=== PATIENT | male | born 1950 | race Caucasian/White ===

== ENCOUNTER 2020-04-12 23:47 | Inpatient (IN) | payer MEDICARE, OTHER ==
[2020-04-13 00:43] LABS: #Eosinphils 0.2 thou/uL (0.0-0.7); #Lymphocytes 1.3 thou/uL (1.20-3.40); #Monocytes 0.7 thou/uL (0.11-0.59); #Neutrophils 5.2 thou/uL (1.40-6.50); %Basophils 0.2 % (0.0-1.0); %Eosinophils 3.2 % (0.0-10.0); %Lymphocytes 17.7 % (21.0-51.0); %Monocytes 9.3 % (0.0-10.0); %Neutrophils 69.6 % (42.0-75.0); Hemoglobin 14.1 g/dL (14.0-18.0); Mean Corpuscular HGB CONC 33.7 g/dL (32.0-36.0); Mean Corpuscular Hemoglobin 30.1 pg (27.0-31.0); Mean Corpuscular Volume 89.4 fL (78.0-98.0); Mean Platelet Volume 8.5 fL (7.4-10.4); Platelet Count 143 thou/uL (130-400); RBC Distribution Width 12.5 % (11.5-14.5); Red Blood Cell (RBC) Count 4.67 mill/uL (4.70-6.10); White Blood Cell (WBC) Count 7.4 thou/uL (4.8-10.8)
[2020-04-13 00:59] LABS: ALT (SGPT) 24 U/L (8-55); AST (SGOT) 17 U/L (5-34); Albumin 4.4 g/dL (3.4-4.8); Alkaline Phosphatase 56 U/L (40-110); Anion Gap 15 mmol/L (10-20); BUN (Urea Nitrogen) 19 mg/dL (8.4-25.7); Bilirubin, Total 0.5 mg/dL (0.2-1.2); Calc. Creatinine Clearance 0 mL/min (70-130); Calcium 9.2 mg/dL (7.8-10.44); Carbon Dioxide 27 mmol/L (23-31); Chloride 99 mmol/L (98-107); Globulin 3.4 g/dL (2.4-3.5); Glucose 337 mg/dL (80-115); Potassium 4.3 mmol/L (3.5-5.1); Protein, Total 7.8 g/dL (5.8-8.1); Sodium 137 mmol/L (136-145)
[2020-04-13] MEDS ORDERED: Insulin Regular 300 UNITS/3 ML VIAL ONE (01:09)
[2020-04-13 01:20] LABS: CKMB 3.2 ng/mL (0-6.6)
[2020-04-13 02:44] VITALS: BMI 28.6
[2020-04-13] MEDS ORDERED: Dextrose 5% in Water 1,000 ML IV PRN (03:20)
[2020-04-13] MEDS ORDERED: HumaLOG 300 UNITS/3 ML VIAL SC PRN ×3 (03:20→12:44)
[2020-04-13] MEDS ORDERED: Dextrose 50% Abboject 50 ML SYRINGE SLOW IVP PRN (03:20)
--- NOTE | 2020-04-13 03:43 | PDOC.HHP ---
Hospitalist HPI - History of Present Illness History of Present Illness: ADMISSION DATE: 04/13/2020 TIME OF ASSESSMENT: PRIMARY CARE PHYSICIAN: Sonya CHIEF COMPLAINT: Chest pain HPI: Patient is a 70-year-old male past medical history significant for diabetes mellitus type 2, hypertension, hyperlipidemia. He presents to the ER today for intermittent chest pain that has been occurring for 4 months. He describes it as a sharp pain that starts in his upper abdomen and goes to the back and then will radiate down his left arm. He has been using nitro and Pepcid daily to help relieve his pain. Patient states he also uses marijuana at times to help relieve the pain. He states that he had a stress test over a year ago and at that time he was started on nitro, denies heart cath. He states that he was told the pain was "gas pain" but he was given nitro to take when it occurs. Today the patient took 3 sublingual nitro at home and the pain was relieved when EMS gave him IV fluids in route to the hospital. The pain is accompanied by nausea and shortness of breath, denies vomiting. Patient denies cough, fever, contact with sick persons, orthopnea. He states the reason he came in tonight after 4 months of the pain was that he was encouraged to by his friends. He is a poor historian and his information will change throughout the interview. ED COURSE: Vital Signs: Blood pressure 164/97, pulse 82, respiratory rate 16, temp 98.1 oral, 98% on room air Today in the ER they completed a chest x-ray, EKG, lab work. He was given 1 L of normal saline by EMS which helped decrease his chest pain in route. He was also given aspirin 324 mg by EMS. In the ER he was given regular insulin 8 units and was started on normal saline infusion. PAST MEDICAL HISTORY: Hypertension, diabetes mellitus type 2, hyperlipidemia, hypothyroidism PAST SURGICAL HISTORY: Right fourth digit SOCIAL HISTORY: Patient lives at home. He denies smoking or alcohol use. He does occasionally use marijuana to help relieve his pain. FAMILY HISTORY: Patient unable to remember ALLERGIES: No known drug allergies CURRENT MEDICATIONS: Lisinopril 20 mg once a day Amlodipine 5 mg 2 times a day Metformin 1000 mg 2 times a day Famotidine 20 mg once a day Gabapentin 300 mg 3 times a day Metoprolol tartrate 25 mg 2 times a day Levothyroxine 175 mcg once a day Hospitalist ROS - Review of Systems Respiratory: reports: SOB with excertion Cardiovascular: reports: chest pain Gastrointestinal: reports: nausea All other systems reviewed; all pertinent +/- noted in HPI/Subj - Exam General Appearance: NAD, awake alert ENT: normocephalic atraumatic Neck: supple Heart: RRR, no murmur, no gallops, no rubs, normal peripheral pulses Respiratory: CTAB, no wheezes, no rales, no ronchi, normal chest expansion Gastrointestinal: soft, non-tender, non-distended, normal bowel sounds Extremities: no edema Skin: no rashes Neurological: no weakness, no focal deficits Musculoskeletal: normal tone, no muscle wasting Psychiatric: normal affect, normal behavior, A&O x 3 Hospitalist Results - Labs Result Diagrams: 04/13/20 04:16 04/13/20 00:33 Lab results: WBC 7.4 thou/uL (4.8-10.8) 04/13/20 00:33 Hgb 14.1 g/dL (14.0-18.0) 04/13/20 00:33 Hct 41.7 % (42.0-52.0) L 04/13/20 00:33 MCV 89.4 fL (78.0-98.0) 04/13/20 00:33 Plt Count 143 thou/uL (130-400) 04/13/20 00:33 Neutrophils % 69.6 % (42.0-75.0) 04/13/20 00:33 Sodium 137 mmol/L (136-145) 04/13/20 00:33 Potassium 4.3 mmol/L (3.5-5.1) 04/13/20 00:33 Chloride 99 mmol/L (98-107) 04/13/20 00:33 Carbon Dioxide 27 mmol/L (23-31) 04/13/20 00:33 BUN 19 mg/dL (8.4-25.7) 04/13/20 00:33 Creatinine 1.55 mg/dL (0.7-1.3) H 04/13/20 00:33 Glucose 337 mg/dL (80-115) H 04/13/20 00:33 Calcium 9.2 mg/dL (7.8-10.44) 04/13/20 00:33 Total Bilirubin 0.5 mg/dL (0.2-1.2) 04/13/20 00:33 AST 17 U/L (5-34) 04/13/20 00:33 ALT 24 U/L (8-55) 04/13/20 00:33 Alkaline Phosphatase 56 U/L (40-110) 04/13/20 00:33 CK-MB (CK-2) 3.2 ng/mL (0-6.6) 04/13/20 00:33 Troponin I 0.066 ng/mL (< 0.028) H 04/13/20 00:33 Serum Total Protein 7.8 g/dL (5.8-8.1) 04/13/20 00:33 Albumin 4.4 g/dL (3.4-4.8) 04/13/20 00:33 - EKG Interpretation EKG: Sinus rhythm 83 bpm with no ectopic beats, inverted T waves II, III, aVf, V4, V5, V6 Hospitalist H&P A/P - Plan Plan: Chest pain Continue to trend troponins, initial was slightly elevated at 0.066unsure of baseline Plan for stress test in a.m. unless troponins elevate or has EKG changes Monitor on telemetry Continue aspirin Acute kidney injury versus chronic kidney disease Continue IV fluids Recheck labs in a.m. to see if any improvementunsure of patient's baseline Diabetes mellitus type 2 Hyperglycemic upon arrival to ER, currently BS is 186 Accu-Cheks AC at bedtime Mild sliding scale insulin Hold Metformin at this time Hypertension Monitor vital signs every 4 hour Restart home medications once reconciled Hypothyroid Check TSH Restart home medication Hyperlipidemia FLP in a.m. Restart home medications VTE prophylaxis in place with SCDs CODE STATUS: Full Surrogate decision-maker is the patient's sister
[2020-04-13] MEDS ORDERED: Aspirin 325 MG TAB PO SCH (03:45)
[2020-04-13] MEDS ORDERED: Sodium Chloride 0.9% 1,000 ML IV SCH (04:00)
[2020-04-13 04:46] LABS: #Eosinphils 0.3 thou/uL (0.0-0.7); #Lymphocytes 1.8 thou/uL (1.20-3.40); #Monocytes 0.7 thou/uL (0.11-0.59); #Neutrophils 4.3 thou/uL (1.40-6.50); %Basophils 0.4 % (0.0-1.0); %Eosinophils 4.5 % (0.0-10.0); %Lymphocytes 24.6 % (21.0-51.0); %Monocytes 10.4 % (0.0-10.0); %Neutrophils 60.1 % (42.0-75.0); Hemoglobin 13.5 g/dL (14.0-18.0); Mean Corpuscular HGB CONC 33.8 g/dL (32.0-36.0); Mean Corpuscular Hemoglobin 30.1 pg (27.0-31.0); Mean Corpuscular Volume 88.9 fL (78.0-98.0); Mean Platelet Volume 8.3 fL (7.4-10.4); Platelet Count 138 thou/uL (130-400); RBC Distribution Width 12.5 % (11.5-14.5); Red Blood Cell (RBC) Count 4.48 mill/uL (4.70-6.10); White Blood Cell (WBC) Count 7.1 thou/uL (4.8-10.8)
[2020-04-13 05:03] LABS: Anion Gap 13 mmol/L (10-20); BUN (Urea Nitrogen) 18 mg/dL (8.4-25.7); Calc. Creatinine Clearance 66 mL/min (70-130); Calcium 9.1 mg/dL (7.8-10.44); Carbon Dioxide 28 mmol/L (23-31); Cardiac Risk 6.6 (Less than 4.5); Chloride 103 mmol/L (98-107); Cholesterol 198 mg/dl (< 200 Desired); Glucose 190 mg/dL (80-115); HDL Cholesterol 30 mg/dL (>60 Neg Risk); LDL Cholesterol, Calculated 88 mg/dL; Magnesium 1.8 mg/dL (1.6-2.6); Potassium 4.4 mmol/L (3.5-5.1); Sodium 140 mmol/L (136-145); Triglycerides 399 mg/dL (Less than 150)
[2020-04-13 07:30] LABS: Troponin I 0.403 ng/mL (< 0.028)
[2020-04-13] MEDS ORDERED: Nitroglycerin 0.4 MG TAB (25 Tab Bottle) SL PRN (07:55)
[2020-04-13] MEDS ORDERED: Magnesium Sulfate 2 GM in Sodium Chloride 0.9% 100 ML IVPB SCH (08:00)
[2020-04-13] MEDS ORDERED: Magnesium 2 GM/50 ML 2 GM in Premix Bag 1 BAG IVPB SCH (08:00)
[2020-04-13] MEDS ORDERED: Enoxaparin Sodium 80 MG/0.8 ML SYRINGE SC SCH (08:00)
[2020-04-13 08:22] LABS: SARS-CoV-2 MS2 Positive; SARS-CoV-2 N Gene Negative; SARS-CoV-2 S Gene Negative; SARS-CoV-2 by NAA Not Detected (NotDetected); SARS-CoV-2 orf1ab Negative
--- NOTE | 2020-04-13 08:32 | RAD ---
EXAM: Chest PA and lateral: HISTORY: Chest pain COMPARISON: None FINDINGS: Heart size:Within normal limits. Lungs:Clear of acute process. No confluent pneumonia, overt edema, pleural effusion, or other acute process. IMPRESSION: No significant acute intrathoracic disease.
[2020-04-13] MEDS ORDERED: Lisinopril 2.5 MG TAB PO SCH (09:00)
[2020-04-13] MEDS ORDERED: Metoprolol Tartrate 25 MG TAB ONE (09:36)
[2020-04-13] MEDS ORDERED: Enoxaparin Sodium 80 MG/0.8 ML SYRINGE ONE (09:36)
[2020-04-13] MEDS ORDERED: Magnesium 2 GM/50 ML BAG (IN WATER) ONE (09:36)
[2020-04-13] MEDS ORDERED: Aspirin 325 MG TAB ONE (09:36)
[2020-04-13] MEDS: Metoprolol Tartrate 25 MG TAB PO SCH ×2 (09:41→20:45)
[2020-04-13] MEDS: Enoxaparin Sodium 80 MG/0.8 ML SYRINGE SC SCH ×3 (09:41→20:52)
[2020-04-13] MEDS: Aspirin 325 mg Enteric Coated Tablet PO SCH (09:41)
[2020-04-13 10:17] LABS: CKMB 4.1 ng/mL (0-6.6)
[2020-04-13] MEDS ORDERED: diphenhydrAMINE 50 MG CAP PO PRN (12:40)
[2020-04-13] MEDS ORDERED: Nitroglycerin 2% Ointment 1 INCH/1 GM Packet TOP PRN (12:43)
[2020-04-13] MEDS ORDERED: Lisinopril 20 MG TAB PO SCH (12:45)
[2020-04-13] MEDS ORDERED: Famotidine 20 MG TAB PO SCH (13:00)
[2020-04-13] MEDS: Gabapentin 300 MG CAP PO SCH ×2 (13:37→20:45)
[2020-04-13] MEDS ORDERED: Communication Order-Pharmacy FS SCH (13:45)
--- NOTE | 2020-04-13 14:20 | CON ---
DATE OF CONSULTATION: 04/13/2020 REASON FOR CONSULTATION: Ere-UY-ehnrnzsdr myocardial infarction. HISTORY OF PRESENT ILLNESS: Mr. Olmstead is a 70-year-old gentleman. He has a long history of diabetes for at least 10 years. He said at least for several weeks, he noticed that if he exerts himself, he will get pressure in his chest. He said it is worse when he tries to eat something and then try to exert himself. He said on a couple of occasions, "I didn't know if I was going to make it back home." He has been taking increasing amounts of nitroglycerin. The patient finally came to the hospital, where he has been admitted after found to have slight increased troponin levels. PAST MEDICAL HISTORY: 1. Hypertension. 2. Diabetes for over 10 years, also on insulin. 3. Unknown cholesterol status. HOME MEDICATIONS: Included: 1. Metformin 1000 mg twice a day. 2. Insulin, he adjusts the dose based on his glucose. 3. Metoprolol tartrate 25 mg twice a day. 4. Lisinopril 20 mg a day. 5. Gabapentin. 6. Amlodipine 5 mg a day. 7. Pepcid if needed. 8. Levothyroxine. 9. Benadryl if needed for sleep. ALLERGIES: NONE KNOWN. SOCIAL HISTORY: No alcohol or tobacco abuse. He does occasionally use marijuana. REVIEW OF SYSTEMS: CONSTITUTIONAL: No significant weight gain or loss. VISION: No changes. HEARING: No changes. PULMONARY: No cough or wheezing. GASTROINTESTINAL: No nausea, vomiting, or diarrhea. SKIN: No rashes. NEUROLOGIC: No unilateral weakness or numbness. PSYCHIATRIC: No unusual depression or anxiety. FAMILY HISTORY: Negative for heart disease as far as he knows. PHYSICAL EXAMINATION: GENERAL: This is a pleasant 70-year-old man, in no distress. VITAL SIGNS: Blood pressure 172/97, pulse 68 and regular. LUNGS: Clear. CARDIAC: Normal S1, normal S2. There is no murmur, rub, or gallop. ABDOMEN: Soft and nontender. EXTREMITIES: Warm and dry. No clubbing or cyanosis. There is no edema. Peripheral pulses are palpable in the feet. LABORATORY DATA: Troponin 0.418. BNP 341.0. Chemistry; glucose 174, creatinine 1.34. Echocardiogram reveals ejection fraction 35% to 40%. Akinesis of the mid and distal anterior wall apex and distal inferior wall. EKG revealed sinus rhythm, some T-wave inversions in V3, V4, V5, and V6. T-waves were upright in V3 yesterday. ASSESSMENT: 1. Kiw-LZ-yrapuaxvg myocardial infarction, pain-free now. 2. Longstanding diabetes. 3. Longstanding hypertension. 4. Unknown cholesterol status. 5. Depressed left ventricular function, likely the left anterior descending artery distribution, likely with "wrap-around" anatomy would be likely. 6. Significant chance he may have multivessel coronary artery disease. PLAN: 1. Aspirin. 2. Enoxaparin. 3. Check lipids. 4. Beta blockers and LAISHA inhibitors. 5. Statins. 6. Proceed to cardiac catheterization tomorrow. Discussed risks of stroke, heart attack, iodine allergy, loss of blood supply to leg or kidney, stent thrombosis, stent restenosis all discussed. The patient understands and wishes to proceed. Job ID: [id number]
[2020-04-13] MEDS: Famotidine 20 MG TAB PO SCH (20:46)
[2020-04-13] MEDS ORDERED: Atorvastatin Calcium 40 MG TAB PO SCH (21:00)
[2020-04-13] MEDS ORDERED: Lisinopril 10 MG TAB PO SCH (21:00)
[2020-04-14] MEDS ORDERED: Sodium Chloride 0.9% 1,000 ML IV SCH (05:00)
[2020-04-14] MEDS: Aspirin 325 mg Enteric Coated Tablet PO SCH (05:17)
[2020-04-14] MEDS: Metoprolol Tartrate 25 MG TAB PO SCH (05:17)
[2020-04-14] MEDS: Famotidine 20 MG TAB PO SCH (05:17)
[2020-04-14] MEDS: Gabapentin 300 MG CAP PO SCH (05:17)
[2020-04-14] MEDS ORDERED: Levothyroxine 175 MCG TAB PO SCH (06:00)
[2020-04-14 08:37] LABS: #Basophils 0.1 thou/uL (0.0-0.2); #Eosinphils 0.4 thou/uL (0.0-0.7); #Monocytes 0.7 thou/uL (0.11-0.59); %Basophils 1.2 % (0.0-1.0); %Eosinophils 6.1 % (0.0-10.0); %Lymphocytes 27.4 % (21.0-51.0); %Monocytes 9.3 % (0.0-10.0); %Neutrophils 55.9 % (42.0-75.0); Hemoglobin 13.4 g/dL (14.0-18.0); Mean Corpuscular HGB CONC 33.1 g/dL (32.0-36.0); Mean Corpuscular Hemoglobin 29.6 pg (27.0-31.0); Mean Corpuscular Volume 89.4 fL (78.0-98.0); Mean Platelet Volume 8.3 fL (7.4-10.4); Platelet Count 132 thou/uL (130-400); RBC Distribution Width 12.4 % (11.5-14.5); Red Blood Cell (RBC) Count 4.54 mill/uL (4.70-6.10); White Blood Cell (WBC) Count 7.2 thou/uL (4.8-10.8)
[2020-04-14 08:57] LABS: Anion Gap 12 mmol/L (10-20); BUN (Urea Nitrogen) 23 mg/dL (8.4-25.7); Calc. Creatinine Clearance 58 mL/min (70-130); Calcium 8.8 mg/dL (7.8-10.44); Carbon Dioxide 30 mmol/L (23-31); Chloride 100 mmol/L (98-107); Glucose 194 mg/dL (80-115); Potassium 4.7 mmol/L (3.5-5.1); Sodium 137 mmol/L (136-145)
[2020-04-14] MEDS ORDERED: Lisinopril 20 MG TAB PO SCH (09:00)
[2020-04-14] MEDS ORDERED: Midazolam HCl 2 mg/2 ml Vial ONE (09:06)
[2020-04-14] MEDS ORDERED: Fentanyl 100 MCG/2 ML VIAL ONE (09:06)
[2020-04-14] MEDS ORDERED: diphenhydrAMINE 50 MG/ML VIAL ONE (09:23)
[2020-04-14] MEDS ORDERED: Heparin 10,000 UNITS/ 10 ML VIAL ONE (09:39)
[2020-04-14] MEDS ORDERED: Aminocaproic Acid 5 GM/20 ML VIAL ONE (10:02)
[2020-04-14] MEDS ORDERED: Magnesium Sulfate 1 GM/2 ML VIAL ONE (10:02)
[2020-04-14] MEDS ORDERED: Succinylcholine 200 MG/10 ml SYRINGE FS ONE (10:02)
[2020-04-14] MEDS ORDERED: PHENYLEPHRINE-NS 100 MCG/ML 10 ML SYRINGE ONE (10:02)
[2020-04-14] MEDS ORDERED: Sodium Bicarb 50 MEQ/50 ML Abboject 8.4% SYRINGE ONE (10:02)
[2020-04-14] MEDS ORDERED: Lidocaine 2% PF 100 mg/5 ml Syringe ONE (10:02)
[2020-04-14] MEDS ORDERED: Heparin 5,000 UNITS/ML VIAL ONE (10:02)
[2020-04-14] MEDS ORDERED: PROPOFOL 200 MG/20 ML VIAL ONE (10:02)
[2020-04-14] MEDS ORDERED: Heparin 30,000 units/30 ml VIAL ONE (10:02)
[2020-04-14] MEDS ORDERED: Labetalol HCl 100 MG/20 ML VIAL ONE (10:02)
[2020-04-14] MEDS ORDERED: Protamine Sulfate 250 MG/25 ML VIAL ONE (10:02)
[2020-04-14] MEDS ORDERED: ePHEDrine 50 MG/ML VIAL ONE (10:02)
[2020-04-14] MEDS ORDERED: Thrombin 5000 UNITS/5 ML VIAL ONE (10:02)
[2020-04-14] MEDS ORDERED: Mannitol 12.5 GM/50 ML ONE (10:02)
[2020-04-14] MEDS ORDERED: Papaverine 60 MG/2 ML VIAL ONE (10:02)
[2020-04-14] MEDS ORDERED: Calcium Chloride 1 GM/10 ML Abboject SYRINGE ONE (10:02)
[2020-04-14] MEDS ORDERED: Rocuronium Bromide 10 MG/ML (10ML VIAL) ONE (10:02)
[2020-04-14] MEDS ORDERED: Albumin 5% 500 ML ONE (10:02)
[2020-04-14] MEDS ORDERED: Vecuronium 10 MG VIAL ONE (10:02)
[2020-04-14] MEDS ORDERED: Cardioplegic Soln 1,000 ML BAG ONE (10:02)
[2020-04-14] MEDS ORDERED: Potassium Chloride 60 MEQ/30 ML VIAL ONE (10:02)
[2020-04-14] MEDS ORDERED: Heparin 25,000 units/D5W 0 ML ONE (10:15)
[2020-04-14] MEDS ORDERED: Heparin 10,000 UNITS/1 ML VIAL 30,000 UNITS in Sodium Chloride 0.9% 1,000 ML FS SCH (10:15)
[2020-04-14] MEDS ORDERED: Midazolam HCl 5 mg/5 ml Vial ONE (10:24)
[2020-04-14] MEDS ORDERED: Fentanyl 250 MCG/5 ML VIAL ONE ×2 (10:24→10:25)
[2020-04-14] MEDS ORDERED: CEFAZOLIN 2 GM in Premix Bag 1 BAG IVPB SCH (10:30)
--- NOTE | 2020-04-14 10:57 | CON ---
DATE OF CONSULTATION: 04/14/2020 REASON FOR CONSULTATION: Evaluate the patient for coronary artery bypass grafting. HISTORY OF PRESENT ILLNESS: Mr. Olmstead is a 70-year-old gentleman, who was admitted with non-ST elevation myocardial infarction yesterday. He underwent cardiac catheterization today revealing critical three-vessel disease including a critical left main. He has been having chest pain and shortness of breath at home with minimal activity. He has been taking nitroglycerin at home in increasing amounts. Echocardiogram has been performed showing ejection fraction of 35% to 40%. Currently, he is resting comfortably in the recovery room with no complaints. PAST MEDICAL HISTORY: 1. Coronary artery disease. 2. Hypertension. 3. Diabetes mellitus. 4. Non-ST elevation myocardial infarction. PAST SURGICAL HISTORY: None. CURRENT MEDICATIONS: 1. Metformin 1000 mg b.i.d. 2. Insulin. 3. Metoprolol 25 mg b.i.d. 4. Lisinopril 20 mg daily. 5. Gabapentin. 6. Amlodipine 5 mg daily. 7. Pepcid p.r.n. 8. Levothyroxine. ALLERGIES: NONE. SOCIAL HISTORY: Does not use alcohol or tobacco. Occasionally smokes marijuana. REVIEW OF SYSTEMS: A 10-point review of systems is performed and is negative except as above. PHYSICAL EXAMINATION: GENERAL: This is a well-developed, well-nourished male, resting comfortably in the recovery room. VITAL SIGNS: He is in sinus rhythm with a heart rate of 58, blood pressure is 146/87, and oxygen saturation is 100% on 2 L nasal cannula. HEENT: Sclerae nonicteric. Pupils are equal and round bilaterally. NECK: Supple. He has no carotid bruits. CHEST: Clear bilaterally. HEART: Rhythm is regular without murmur. ABDOMEN: Soft and nontender without mass. EXTREMITIES: No cyanosis, clubbing, or edema. VASCULAR: He has palpable carotid, radial, femoral, dorsalis pedis pulses bilaterally. He has a femoral sheath in the right femoral artery. LABORATORY DATA: Of note, hemoglobin is 13.4, platelet count is 132,000. Creatinine is 1.51, potassium is 4.7. Peak troponin was 0.41. Chest x-ray shows no dominant lung mass with clear lung claudio bilaterally. ASSESSMENT AND PLAN: This is a pleasant 70-year-old gentleman, who is status post non-ST elevation myocardial infarction. He has three-vessel coronary artery disease on cardiac catheterization with ejection fraction of 35% to 40%. Potential targets included LAD, diagonal, ramus, and PDA. The risks, benefits, and options to acute coronary bypass grafting were discussed with him. He is agreeable to proceed. Job ID: [id number]
[2020-04-14] MEDS ORDERED: Insulin Regular 300 UNITS/3 ML VIAL ONE (11:34)
[2020-04-14] MEDS ORDERED: Iopamidol 370 76% 100 ML VIAL ONE (11:49)
[2020-04-14] MEDS ORDERED: Dexamethasone 20 MG/5 ML VIAL ONE ×2 (13:28→13:33)
[2020-04-14] MEDS ORDERED: EPINEPHrine 1 MG/ML AMP ONE ×2 (13:28→13:33)
[2020-04-14] MEDS ORDERED: Bupivacaine PF 0.5% 30 ML VIAL ONE ×2 (13:28→13:33)
[2020-04-14 14:53] LABS: Actual Bicarbonate (HCO3a) 23.1 mEq/L (22-28); CO2 Tension 45.7 mmHg (35.0-45.0); Calcium, Ionized (arterial) 1.13 mmol/L (1.12-1.30); Carboxyhemoglobin (COHb) 0.1 gm% (0.0-3.0); Hemoglobin (Hb) 11.2 g/dL (14.0-18.0); O2 Tension (PaO2), arterial 94.2 mmHg (> 80.0); Potassium - ABG Lab 4.08 mmol/L (3.70-5.30); pH, Arterial 7.32 (7.35-7.45)
[2020-04-14] MEDS ORDERED: Bisacodyl 5 MG TAB PO PRN (14:54)
[2020-04-14] MEDS ORDERED: Potassium Chloride 20 MEQ/100 ML PREMIX BAG IVPB PRN (14:54)
[2020-04-14] MEDS ORDERED: Hetastarch 6% 500 ML 500 ML IVPB PRN (14:54)
[2020-04-14] MEDS ORDERED: Mag-Al 1200 mg/1200 mg/30 ML UDCUP PO PRN (14:54)
[2020-04-14] MEDS ORDERED: hydrALAZINE 20 MG/ML VIAL SLOW IVP PRN (14:54)
[2020-04-14] MEDS ORDERED: Magnesium 2 GM/50 ML 2 GM in Premix Bag 1 BAG IVPB SCH (14:54)
[2020-04-14] MEDS ORDERED: Nitroglycerin 50 MG/250 ML BOT 250 ML IVPB PRN (14:54)
[2020-04-14] MEDS ORDERED: D5 1/2 NS w/20 mEq KCL 1,000 ML IV SCH (14:54)
[2020-04-14] MEDS ORDERED: Guaifenesin DM 100-10/5 ML UDCUP PO PRN (14:54)
[2020-04-14] MEDS ORDERED: Bisacodyl 10 MG SUPP PR PRN (14:54)
[2020-04-14] MEDS ORDERED: Norepinephrine 8 MG/0.9% NS 250 ML IVPB PRN (14:54)
[2020-04-14] MEDS ORDERED: Acetaminophen 325 MG TAB PO PRN (14:54)
[2020-04-14] MEDS ORDERED: HYDROcodone/Acetaminophen 5/325 mg Tablet PO PRN (14:54)
[2020-04-14] MEDS ORDERED: Fentanyl 100 MCG/2 ML VIAL SLOW IVP PRN ×2 (14:54)
[2020-04-14] MEDS ORDERED: Promethazine HCl 25 MG/ML VIAL IM PRN (14:54)
[2020-04-14] MEDS ORDERED: Post-Op Insulin Drip Protocol IVPB ONE (14:54)
[2020-04-14] MEDS ORDERED: D5 1/2 NS w/20 mEq KCL 1,000 ML ONE (14:59)
[2020-04-14 15:00] LABS: ALV-art Gradient 419.075 mmHg (0-20); Puncture Site Arterial Line
--- NOTE | 2020-04-14 15:02 | OP ---
DATE OF PROCEDURE: 04/14/2020 PREOPERATIVE DIAGNOSES: Coronary artery disease/status post non-ST elevation myocardial infarction/hypertension/dyslipidemia/diabetes mellitus/depressed left ventricular ejection fraction. POSTOPERATIVE DIAGNOSES: Coronary artery disease/status post non-ST elevation myocardial infarction/hypertension/dyslipidemia/diabetes mellitus/depressed left ventricular ejection fraction. PROCEDURES PERFORMED: Coronary artery bypass grafting x4- 1. Left internal mammary artery to 2.0 mm distal LAD-good conduit and target. 2. Reverse saphenous vein to 1.5 mm ramus-good conduit with thin-walled small target. 3. Reverse saphenous vein to 2.0 mm diagonal-good conduit and target. 4. Reverse saphenous vein to 2.0 mm PDA-good conduit with diffusely diseased target. PARACHUTE OFFICER: Beau Villeda MD ANESTHESIA: General endotracheal-Dr. Hardik Gomez. PUMP TIME: 66 minutes. CROSSCLAMP TIME: 35 minutes. LOW-CORE TEMPERATURE: 34 degrees Celsius. COBOL PROGRAMMER: Travon Serna. DRAINS: 19- and 24-Kazakh Adonis drains. DRIPS: None. TRANSFUSIONS: None. DESCRIPTION OF PROCEDURE: After consent was obtained, the patient was brought to the operating room and placed in supine position on the operating table. Appropriate central line and monitors were placed and general endotracheal anesthesia was induced. Chest, abdomen, and legs were prepped and draped in usual sterile fashion. Greater saphenous vein was harvested from the left lower extremity utilizing an endoscopic technique. Wounds were irrigated and closed in layers. Vein was prepared for use for bypass conduit. Median sternotomy was performed. Left internal mammary artery was harvested as a pedicle graft. The patient was systemically heparinized. Distal pedicle was divided and infused with papaverine. Thymic fat and pericardium were divided with electrocautery. Pericardial stay sutures were placed. Aortic and atrial cannulation was performed. After adequate heparinization, retrograde prime was performed. The patient was placed on cardiopulmonary bypass. Distal targets were marked. Aortic cross-clamp was applied and antegrade sanguineous cardioplegic arrest was obtained. 1 L of antegrade cold [place] cardioplegia was given. Topical cold solution was used. Reverse saphenous vein was anastomosed to PDA in end-to-side fashion with running 7-0 Prolene suture. Anastomosis was tested and was hemostatic. Reverse saphenous vein was anastomosed to the ramus in an end-to-side fashion with running 7-0 Prolene suture. Anastomosis was tested and was hemostatic. Reverse saphenous vein was anastomosed to diagonal in an end-to-side fashion with running 7-0 Prolene suture. Anastomosis was tested and was hemostatic. Mammary artery was brought through a window in the pericardium and anastomosed to LAD in end-to-side fashion with running 7-0 Prolene suture. On release of mammary clamps, there was good hooding of the anastomosis and good distal flow. Pedicle was secured with interrupted 6-0 Prolene suture. The cross-clamp was removed and partial occluding clamp placed. Saphenous veins to the diagonal and PDA were anastomosed to the aortic root. Saphenous vein to the ramus was anastomosed to the grant of the diagonal graft. Partial occluding clamp was removed and graft was deaired. Anastomoses were inspected for hemostasis, which was good. The patient was warmed and weaned from cardiopulmonary bypass. After resumption of sinus rhythm, good hemodynamics, temperature greater than 36.5, bypass was discontinued. Transfusion was given. Protamine was administered. Decannulation was performed and pursestring suture secured. 24-Kazakh and 19-Kazakh Adonis drains were placed in mediastinum. The sternum was treated with vancomycin paste. After adequate hemostasis has been obtained, sternum was closed with #7 wire. Sternum was treated with platelet rich plasma, wires were twisted and buried. Wounds were irrigated, treated with platelet poor plasma, and closed in multiple layers. Needle, sponge, and instrument counts were all reported as correct at the end of the procedure. The patient was transferred to the intensive care unit in stable condition. Job ID: [id number]
--- NOTE | 2020-04-14 15:04 | RAD ---
EXAM: XR Chest 1 View Portable PROVIDED CLINICAL HISTORY: Post open heart COMPARISON: 04/13/2020 FINDINGS: Cardiac and mediastinal silhouette is unchanged in appearance. Median sternotomy changes are now seen . Vascular calcification is noted involving the aortic arch. Right subclavian central line is noted, tip terminating overlying expected location of RA. Mediastinal and pleural drains are demonstr ated. Endotracheal tube is seen, tip of which terminates inferior to the thoracic inlet but cranial to the cristal. No focal consolidation, pleural fluid or pneumothorax apparent. IMPRESSION: Interval median sternotomy change and support apparatus as described.
[2020-04-14 15:12] LABS: Hemoglobin 10.9 g/dL (14.0-18.0); INR-International Normal Ratio 1.2; PTT 30.6 sec (22.9-36.1); Prothrombin Time 15.7 sec (12.0-14.7)
[2020-04-14 15:23] LABS: #Eosinphils 0.2 thou/uL (0.0-0.7); #Lymphocytes 1.6 thou/uL (1.20-3.40); #Monocytes 0.9 thou/uL (0.11-0.59); #Neutrophils 10.4 thou/uL (1.40-6.50); %Basophils 0.3 % (0.0-1.0); %Eosinophils 1.6 % (0.0-10.0); %Lymphocytes 12.2 % (21.0-51.0); %Neutrophils 78.9 % (42.0-75.0); Anion Gap 13 mmol/L (10-20); BUN (Urea Nitrogen) 21 mg/dL (8.4-25.7); Calc. Creatinine Clearance 68 mL/min (70-130); Calcium 7.4 mg/dL (7.8-10.44); Carbon Dioxide 21 mmol/L (23-31); Chloride 107 mmol/L (98-107); Glucose 175 mg/dL (80-115); Hemoglobin 10.8 g/dL (14.0-18.0); Mean Corpuscular HGB CONC 32.5 g/dL (32.0-36.0); Mean Corpuscular Hemoglobin 29.3 pg (27.0-31.0); Potassium 4.2 mmol/L (3.5-5.1); RBC Distribution Width 12.3 % (11.5-14.5); Red Blood Cell (RBC) Count 3.69 mill/uL (4.70-6.10); Sodium 137 mmol/L (136-145); White Blood Cell (WBC) Count 13.2 thou/uL (4.8-10.8)
[2020-04-14 15:25] LABS: Potassium 4.2 mmol/L (3.5-5.1)
[2020-04-14] MEDS ORDERED: Insulin Regular 300 UNITS/3 ML VIAL SC PRN (15:30)
[2020-04-14] MEDS ORDERED: HUMULIN R 100 UNITS in Sodium Chloride 0.9% 100 ML IVPB SCH (15:30)
[2020-04-14] MEDS ORDERED: Dextrose 50% Abboject 50 ML SYRINGE SLOW IVP PRN (15:30)
[2020-04-14] MEDS ORDERED: Dextrose 5% in Water 1,000 ML IV PRN (15:30)
[2020-04-14 15:35] LABS: MDiff Complete? YES; Mean Platelet Volume 8.3 fL (7.4-10.4); Platelet Count 108 thou/uL (130-400); Platelet Morphology Comment Appears Decreased; Polychromasia SLIGHT = 2-3 cells (100X) (0-2/hpf)
[2020-04-14] MEDS: Morphine 2 MG/ML VIAL SLOW IVP PRN ×2 (16:25→18:02)
[2020-04-14] MEDS: Ondansetron PF 4 MG/2 ML Vial IVP PRN (16:25)
[2020-04-14] MEDS: CEFAZOLIN 2 GM in Premix Bag 1 BAG IVPB SCH (18:03)
[2020-04-14] MEDS ORDERED: Famotidine/PF 20 mg/2ml Vial SLOW IVP SCH (21:00)
[2020-04-14] MEDS ORDERED: Atorvastatin Calcium 20 MG TAB PO SCH (21:00)
--- NOTE | 2020-04-14 22:28 | PDOC.HOSPP ---
- Subjective Encounter Date: 04/14/20 Encounter Time: 07:00 Subjective: Patient seen and examined for non-ST elevation NV. Denies new chest pain. No nausea, vomiting or diaphoresis. - Objective Vital Signs & Weight: Vital Signs (12 hours) Temp Pulse Resp BP Pulse Ox 04/14/20 22:01 80 103/62 04/14/20 22:00 11 L 04/14/20 20:00 97.7 F 9 L 100 04/14/20 18:25 65 85/48 L 04/14/20 18:00 12 04/14/20 16:00 98.2 F 12 95 04/14/20 15:00 97.7 F 04/14/20 14:23 69 107/55 L Weight Weight 193 lb 12.581 oz Most Recent Monitor Data Heart Rate from ECG 80 NIBP 103/62 NIBP BP-Mean 75 Respiration from ECG 16 SpO2 98 I&O: 04/13/20 04/14/20 04/15/20 06:59 06:59 06:59 Intake Total 680 733 Output Total 750 1115 Balance -70 -382 Result Diagrams: 04/14/20 14:43 04/14/20 14:43 Additional Labs: Accuchecks 04/14/20 04/14/20 04/14/20 22:07 21:11 20:11 POC Glucose 135 H 158 H 165 H 04/14/20 04/14/20 04/14/20 19:13 16:35 15:05 POC Glucose 159 H 136 H 155 H 04/14/20 04/14/20 04/14/20 13:31 12:21 12:03 POC Glucose 169 H 155 H 203 H 04/14/20 05:10 POC Glucose 195 H EKG Reviewed by me: Yes (Sinus rhythm on telemetry) Hospitalist ROS - Review of Systems Respiratory: denies: cough, dry, shortness of breath, hemoptysis, SOB with excertion, pleuritic pain, sputum, wheezing, other Cardiovascular: denies: chest pain, palpitations, orthopnea, paroxysmal noc. dyspnea, edema, light headedness, other - Medication Medications: Active Medications Generic Name Dose Route Start Last Admin Trade Name Freq PRN Reason Stop Dose Admin Albumin Human 25 gm 04/14/20 14:54 04/14/20 18:20 Albumin 5% 12.5 Gm/250 Ml Bot IVPB 04/15/20 14:55 25 gm Q6H PRN Administration To Maintain SBP > 90 mmHG Atorvastatin Calcium 20 mg 04/14/20 21:00 04/14/20 20:21 Atorvastatin Calcium 20 Mg Tab PO Not Given HS MORE Famotidine 20 mg 04/14/20 21:00 04/14/20 20:21 Famotidine/Pf 20 Mg/2ml Vial SLOW IVP 20 mg Q12HR MORE Administration Fentanyl 50 mcg 04/14/20 14:54 04/14/20 15:48 Fentanyl 100 Mcg/2 Ml Vial SLOW IVP 04/16/20 14:00 50 mcg Q2H PRN Administration Severe Pain (7-10) Potassium Chloride/Dextrose/Sod Cl 1,000 mls @ 40 mls/hr 04/14/20 14:54 04/14/20 15:00 D5 1/2 Ns W/20 Meq Kcl IV Not Given .Q24H MORE Cefazolin Sodium/Dextrose 2 gm 50 mls @ 100 mls/hr 04/14/20 19:00 04/14/20 18:03 / Device IVPB 04/15/20 11:29 50 mls 0300,1100,1900 MORE Administration Morphine Sulfate 2 mg 04/14/20 14:54 04/14/20 18:02 Morphine 2 Mg/Ml Vial SLOW IVP 2 mg Q15MIN PRN Administration Severe Pain (7-10) Ondansetron HCl 4 mg 04/14/20 14:54 04/14/20 16:25 Ondansetron Pf 4 Mg/2 Ml Vial IVP 4 mg Q6H PRN Administration Nausea/Vomiting - Exam General Appearance: NAD Neck: supple, no JVD Heart: RRR, no gallops Respiratory: no wheezes, no ronchi Gastrointestinal: soft, non-tender, normal bowel sounds Extremities: no cyanosis, no clubbing Neurological: no new deficit Hosp A/P - Plan DVT proph w/SCDs Non-ST elevation NV Diabetes mellitus type II Hypertension Hypothyroidism Dyslipidemia CKD stage III Hypomagnesemia Plan: Cardiac catheterization today. Continue aspirin, beta-blockers, LAISHA inhibitor and statins. Continue levothyroxine. Lifestyle modification emphasized. Echocardiogram reviewed. Continue other medications as above
[2020-04-15] MEDS ORDERED: Norepinephrine 8 MG in Dextrose 5% in Water 242 ML IVPB PRN (01:40)
[2020-04-15 02:06] LABS: Actual Bicarbonate (HCO3a) 21.1 mEq/L (22-28); CO2 Tension 38.3 mmHg (35.0-45.0); Calcium, Ionized (arterial) 1.08 mmol/L (1.12-1.30); Carboxyhemoglobin (COHb) 0.3 gm% (0.0-3.0); Hemoglobin (Hb) 10.3 g/dL (14.0-18.0); Potassium - ABG Lab 4.16 mmol/L (3.70-5.30); pH, Arterial 7.36 (7.35-7.45)
[2020-04-15 02:07] LABS: Puncture Site Arterial Line
[2020-04-15 02:08] LABS: ALV-art Gradient -14.675 mmHg (0-20)
[2020-04-15] MEDS: CEFAZOLIN 2 GM in Premix Bag 1 BAG IVPB SCH ×2 (02:51→12:25)
[2020-04-15] MEDS: Ondansetron PF 4 MG/2 ML Vial IVP PRN (04:13)
[2020-04-15] MEDS: HYDROcodone/Acetaminophen 5/325 mg Tablet PO PRN ×3 (04:14→22:24)
[2020-04-15 05:03] LABS: #Lymphocytes 0.4 thou/uL (1.20-3.40); #Monocytes 0.6 thou/uL (0.11-0.59); #Neutrophils 8.4 thou/uL (1.40-6.50); %Eosinophils 0.1 % (0.0-10.0); %Lymphocytes 3.8 % (21.0-51.0); %Monocytes 6.6 % (0.0-10.0); %Neutrophils 89.5 % (42.0-75.0); Hemoglobin 9.6 g/dL (14.0-18.0); Mean Corpuscular HGB CONC 32.7 g/dL (32.0-36.0); Mean Corpuscular Hemoglobin 29.5 pg (27.0-31.0); Mean Corpuscular Volume 90.2 fL (78.0-98.0); Mean Platelet Volume 8.9 fL (7.4-10.4); Platelet Count 92 thou/uL (130-400); RBC Distribution Width 12.4 % (11.5-14.5); Red Blood Cell (RBC) Count 3.24 mill/uL (4.70-6.10); White Blood Cell (WBC) Count 9.4 thou/uL (4.8-10.8)
[2020-04-15 05:18] LABS: Anion Gap 14 mmol/L (10-20); BUN (Urea Nitrogen) 22 mg/dL (8.4-25.7); Calc. Creatinine Clearance 63 mL/min (70-130); Calcium 7.8 mg/dL (7.8-10.44); Carbon Dioxide 23 mmol/L (23-31); Chloride 107 mmol/L (98-107); Glucose 160 mg/dL (80-115); Potassium 4.6 mmol/L (3.5-5.1); Sodium 139 mmol/L (136-145)
[2020-04-15] MEDS ORDERED: Dextrose 50% Abboject 50 ML SYRINGE SLOW IVP PRN (08:00)
[2020-04-15] MEDS ORDERED: Dextrose 5% in Water 1,000 ML IV PRN (08:00)
[2020-04-15] MEDS: Gabapentin 300 MG CAP PO SCH ×3 (08:22→20:16)
[2020-04-15] MEDS: Magnesium 2 GM/50 ML 2 GM in Premix Bag 1 BAG IVPB SCH (08:23)
[2020-04-15] MEDS: Levothyroxine 175 MCG TAB PO SCH (08:23)
[2020-04-15] MEDS: Insulin Regular 300 UNITS/3 ML VIAL SC PRN ×4 (08:48→20:18)
--- NOTE | 2020-04-15 08:49 | RAD ---
PORTABLE CHEST: HISTORY: Postop sternotomy followup. COMPARISON: 04/14/2020. FINDINGS: The ET tube has been removed. Central line remains in position overlying the SVC. Postop sternotomy changes. Borderline cardiomegaly. The lung claudio appear clear. No evidence of vascular congestio n or significant effusion. IMPRESSION: Postop sternotomy change. No acute lung process. POS: AGW
[2020-04-15] MEDS ORDERED: Aspirin 325 MG TAB PO SCH (09:00)
--- NOTE | 2020-04-15 10:08 | PRG ---
DATE OF SERVICE: 04/15/2020 SUBJECTIVE: Mr. Olmstead is awake and alert, looks really great one day postoperatively. OBJECTIVE: VITAL SIGNS: Blood pressure 111/67 and pulse is 80. LUNGS: Clear. CARDIAC: Normal S1, normal S2. No murmur, rub, or gallop. ABDOMEN: Soft, nontender. ASSESSMENT: 1. Status post emergency coronary artery bypass grafting for three vessels and left main coronary artery stenosis. 2. Left ventricular dysfunction with an ejection fraction of 30%. PLAN: 1. Aspirin. 2. Beta blockers and LAISHA inhibitors if blood pressure tolerates. Job ID: [id number]
--- NOTE | 2020-04-15 10:26 | EKG ---
Test Reason : CP Blood Pressure : / mmHG Vent. Rate : 076 BPM Atrial Rate : 076 BPM P-R Int : 166 ms QRS Dur : 082 ms QT Int : 394 ms P-R-T Axes : 041 -35 013 degrees QTc Int : 443 ms Normal sinus rhythm Left axis deviation Can not rule out latera [place] Inferior infarct , age undetermined T wave abnormality, consider anterior ischemia Abnormal ECG Confirmed by Jarret MURPHY ([id number]) on 04/15/2020 10:25:51 AM Referred By: PIERRE Confirmed By:Jarret MURPHY
[2020-04-15] MEDS: Atorvastatin Calcium 20 MG TAB PO SCH (20:15)
--- NOTE | 2020-04-15 22:03 | PDOC.HOSPP ---
- Subjective Encounter Date: 04/15/20 Encounter Time: 12:30 Subjective: Patient seen and examined for non-ST elevation [place] requiring emergent CABG. Denies any chest pain or shortness of breath. No fever or chills reported. - Objective Vital Signs & Weight: Vital Signs (12 hours) Temp Pulse Resp BP Pulse Ox 04/15/20 16:04 98.1 F 88 18 100/55 L 95 04/15/20 12:00 95 04/15/20 10:50 83 16 112/64 95 Weight Weight 197 lb 8.547 oz Most Recent Monitor Data Heart Rate from ECG 87 NIBP 110/67 NIBP BP-Mean 81 Respiration from ECG 17 SpO2 96 I&O: 04/14/20 04/15/20 04/16/20 06:59 06:59 06:59 Intake Total 680 2107.2 324.2 Output Total 750 1720 195 Balance -70 387.2 129.2 Result Diagrams: 04/15/20 04:15 04/15/20 04:15 Additional Labs: Accuchecks 04/15/20 04/15/20 04/15/20 20:02 16:29 10:34 POC Glucose 276 H 214 H 162 H 04/15/20 04/15/20 04/15/20 06:12 05:26 04:04 POC Glucose 160 H 158 H 160 H 04/15/20 04/15/20 04/15/20 03:08 02:08 01:10 POC Glucose 129 H 102 H 120 H 04/15/20 04/14/20 04/14/20 00:08 23:07 22:07 POC Glucose 140 H 138 H 135 H 04/14/20 18:09 POC Glucose 106 H EKG Reviewed by me: Yes (Sinus rhythm on telemetry) Hospitalist ROS - Review of Systems Respiratory: denies: cough, dry, shortness of breath, hemoptysis, SOB with excertion, pleuritic pain, sputum, wheezing, other Cardiovascular: denies: chest pain, palpitations, orthopnea, paroxysmal noc. dyspnea, edema, light headedness, other - Medication Medications: Active Medications Generic Name Dose Route Start Last Admin Trade Name Freq PRN Reason Stop Dose Admin Hydrocodone Bitart/Acetaminophen 2 tab 04/14/20 14:54 04/15/20 14:12 Hydrocodone/Acetaminophen 5/325 Mg Tablet PO 2 tab Q4H PRN Administration Severe Pain (7-10) Aspirin 325 mg 04/15/20 09:00 04/15/20 08:23 Aspirin 325 Mg Tab PO 325 mg DAILY MORE Administration Atorvastatin Calcium 40 mg 04/15/20 07:01 04/15/20 20:15 Atorvastatin Calcium 20 Mg Tab PO 40 mg HS MORE Administration Fentanyl 25 mcg 04/14/20 14:54 04/15/20 02:55 Fentanyl 100 Mcg/2 Ml Vial SLOW IVP 04/16/20 14:00 25 mcg Q2H PRN Administration Moderate Pain (4-6) Fentanyl 50 mcg 04/14/20 14:54 04/14/20 15:48 Fentanyl 100 Mcg/2 Ml Vial SLOW IVP 04/16/20 14:00 50 mcg Q2H PRN Administration Severe Pain (7-10) Gabapentin 300 mg 04/15/20 09:00 04/15/20 20:16 Gabapentin 300 Mg Cap PO 300 mg TID MORE Administration Magnesium Sulfate 2 gm/ Device 50 mls @ 50 mls/hr 04/15/20 09:00 04/15/20 08:23 IVPB 04/16/20 09:59 50 mls QAM MORE Administration Insulin Human Regular 0 units 04/15/20 08:00 04/15/20 20:18 Insulin Regular 300 Units/3 Ml Vial SC 8 units Q4H PRN Administration POST CABG SLIDING SCALE Protocol Levothyroxine Sodium 175 mcg 04/15/20 08:00 04/15/20 08:23 Levothyroxine 175 Mcg Tab PO 175 mcg 0600 MORE Administration Morphine Sulfate 2 mg 04/14/20 14:54 04/14/20 18:02 Morphine 2 Mg/Ml Vial SLOW IVP 2 mg Q15MIN PRN Administration Severe Pain (7-10) Ondansetron HCl 4 mg 04/14/20 14:54 04/15/20 04:13 Ondansetron Pf 4 Mg/2 Ml Vial IVP 4 mg Q6H PRN Administration Nausea/Vomiting Pantoprazole Sodium 40 mg 04/15/20 09:00 04/15/20 08:22 Pantoprazole 40 Mg Tab PO 40 mg DAILY MORE Administration - Exam General Appearance: NAD Neck: supple, no JVD Heart: RRR, no gallops Respiratory: no wheezes, rhonchi Gastrointestinal: soft, no guarding, no rigidity Extremities: no cyanosis Hosp A/P - Plan DVT proph w/SCDs Non-ST elevation [place] Three-vessel coronary artery disease requiring emergent CABG Diabetes mellitus type II Hypertension Hypothyroidism Dyslipidemia CKD stage III Hypomagnesemia Plan: Patient transferred to telemetry. Continue aspirin, statins and with thyroxine. Continue gabapentin for chronic pain. Cardiac rehab. Continue telemetry monitoring. Recheck labs in a.m.
[2020-04-16 04:56] LABS: #Lymphocytes 1.5 thou/uL (1.20-3.40); #Monocytes 1.4 thou/uL (0.11-0.59); #Neutrophils 8.3 thou/uL (1.40-6.50); %Basophils 0.1 % (0.0-1.0); %Eosinophils 0.1 % (0.0-10.0); %Lymphocytes 13.3 % (21.0-51.0); %Monocytes 12.1 % (0.0-10.0); %Neutrophils 74.4 % (42.0-75.0); Hemoglobin 9.5 g/dL (14.0-18.0); Mean Corpuscular HGB CONC 31.9 g/dL (32.0-36.0); Mean Corpuscular Volume 90.9 fL (78.0-98.0); Platelet Count 89 thou/uL (130-400); RBC Distribution Width 12.5 % (11.5-14.5); Red Blood Cell (RBC) Count 3.27 mill/uL (4.70-6.10); White Blood Cell (WBC) Count 11.2 thou/uL (4.8-10.8)
[2020-04-16 05:03] LABS: Anion Gap 12 mmol/L (10-20); BUN (Urea Nitrogen) 28 mg/dL (8.4-25.7); Calc. Creatinine Clearance 61 mL/min (70-130); Calcium 8.1 mg/dL (7.8-10.44); Carbon Dioxide 25 mmol/L (23-31); Chloride 104 mmol/L (98-107); Glucose 225 mg/dL (80-115); Sodium 136 mmol/L (136-145)
[2020-04-16] MEDS: Insulin Regular 300 UNITS/3 ML VIAL SC PRN ×3 (05:54→20:48)
[2020-04-16] MEDS: Levothyroxine 175 MCG TAB PO SCH (05:55)
[2020-04-16] MEDS ORDERED: Aspirin 325 MG TAB PO SCH (07:23)
[2020-04-16] MEDS ORDERED: Furosemide 40 MG/4 ML VIAL SLOW IVP SCH (07:30)
[2020-04-16] MEDS ORDERED: Carvedilol 3.125 MG TAB PO SCH (08:00)
[2020-04-16] MEDS: Aspirin Chewable 81 MG TAB PO SCH (09:10)
[2020-04-16] MEDS: Gabapentin 300 MG CAP PO SCH ×3 (09:10→20:47)
[2020-04-16] MEDS: Clopidogrel Bisulfate 75 MG TAB PO SCH (09:10)
[2020-04-16] MEDS: Magnesium 2 GM/50 ML 2 GM in Premix Bag 1 BAG IVPB SCH (09:10)
[2020-04-16] MEDS ORDERED: Amiodarone 200 MG TAB PO SCH ×3 (09:30→15:00)
--- NOTE | 2020-04-16 09:33 | PRG ---
DATE OF SERVICE: 04/16/2020 SUBJECTIVE: Mr. Olmstead is out on the floor, feeling well. No complaints. No anginal chest pain. No shortness of breath. OBJECTIVE: VITAL SIGNS: Blood pressure 123/65, pulse 83 and regular. LUNGS: Clear. CARDIAC: Normal S1 and S2. LABORATORY DATA: Potassium is up to 5.0, creatinine 1.48. ASSESSMENT: 1. Status post emergency coronary artery bypass grafting for left main with multivessel coronary artery disease. Ejection fraction 30%. 2. Hyperkalemia, borderline. 3. Renal insufficiency. PLAN: 1. Agree with carvedilol. 2. Agree with diuretics. 3. We will need to hold LAISHA inhibitors for now with renal insufficiency and high potassium. We will follow up with you. ADDENDUM: Mr. Luis Alberto Olmstead just had a nonsustained episode of atrial fibrillation. The patient will be very high risk for atrial fibrillation in view of the depressed left ventricular function. We will start him on amiodarone 400 mg three times a day today, then go to 400 mg once a day starting tomorrow and then depending on how he does with recurrent fibrillation may consider amiodarone 200 mg a day for another month. We will make that decision based on his clinical course. Job ID: [id number]
[2020-04-16] MEDS: HYDROcodone/Acetaminophen 5/325 mg Tablet PO PRN ×2 (14:51→20:46)
[2020-04-16] MEDS ORDERED: Diltiazem HCl 125 MG, Admixture Fee 1 EACH in Sodium Chloride 0.9% 100 ML IVPB SCH (17:00)
--- NOTE | 2020-04-16 19:07 | PDOC.HOSPP ---
- Subjective Encounter Date: 04/16/20 Encounter Time: 11:30 Subjective: Patient seen and examined for non-ST elevation [place]/coronary artery disease requiring CABG. Converted to atrial fibrillation. Denies any chest pain. Complains of intermittent palpitation. - Objective Vital Signs & Weight: Vital Signs (12 hours) Temp Pulse Pulse Pulse Resp BP BP 04/16/20 14:55 98 F 127 H 18 04/16/20 13:22 128 H 113 H 116/62 116/58 L 04/16/20 11:35 97.8 F 130 H 16 04/16/20 09:28 77 90 120/64 142/67 H 04/16/20 07:59 04/16/20 07:51 97.7 F 83 16 BP Pulse Ox Pulse Ox Pulse Ox 04/16/20 14:55 115/91 H 93 L 04/16/20 13:22 04/16/20 11:35 104/60 98 04/16/20 09:28 93 L 94 L 04/16/20 07:59 92 L 04/16/20 07:51 123/65 92 L Weight Weight 197 lb 8.547 oz Most Recent Monitor Data Heart Rate from ECG 87 NIBP 110/67 NIBP BP-Mean 81 Respiration from ECG 17 SpO2 96 I&O: 04/15/20 04/16/20 04/17/20 06:59 06:59 06:59 Intake Total 2107.2 544.2 Output Total 1720 1370 Balance 387.2 -825.8 Result Diagrams: 04/16/20 04:12 04/16/20 04:12 Additional Labs: Accuchecks 04/16/20 04/16/20 04/15/20 16:36 05:27 20:02 POC Glucose 279 H 213 H 276 H 04/15/20 07:23 POC Glucose 139 H EKG Reviewed by me: Yes (Telemetry atrial arrhythmia) Hospitalist ROS - Review of Systems Constitutional: denies: fever, chills, sweats, weakness, malaise, other Gastrointestinal: denies: nausea, vomiting, abdominal pain, diarrhea, constipation, melena, hematochezia, other - Medication Medications: Active Medications Generic Name Dose Route Start Last Admin Trade Name Freq PRN Reason Stop Dose Admin Hydrocodone Bitart/Acetaminophen 2 tab 04/14/20 14:54 04/16/20 14:51 Hydrocodone/Acetaminophen 5/325 Mg Tablet PO 2 tab Q4H PRN Administration Severe Pain (7-10) Aspirin 81 mg 04/16/20 09:00 04/16/20 09:10 Aspirin Chewable 81 Mg Tab PO 81 mg DAILY MORE Administration Atorvastatin Calcium 40 mg 04/15/20 07:01 04/15/20 20:15 Atorvastatin Calcium 20 Mg Tab PO 40 mg HS MORE Administration Clopidogrel Bisulfate 75 mg 04/16/20 09:00 04/16/20 09:10 Clopidogrel Bisulfate 75 Mg Tab PO 75 mg DAILY MORE Administration Diltiazem HCl 5 mg 04/16/20 17:00 04/16/20 17:24 Diltiazem Hcl 25 Mg/5 Ml Vial SLOW IVP 04/16/20 19:00 5 mg NOW MORE Administration Gabapentin 300 mg 04/15/20 09:00 04/16/20 14:51 Gabapentin 300 Mg Cap PO 300 mg TID MORE Administration Diltiazem HCl 125 mg/ 125 mls @ 0 mls/hr 04/16/20 17:00 04/16/20 17:50 Miscellaneous Medication 1 IVPB 125 mls each/ Sodium Chloride INF MORE Administration Protocol As Directed Insulin Human Regular 0 units 04/15/20 08:00 04/16/20 18:42 Insulin Regular 300 Units/3 Ml Vial SC 8 units Q4H PRN Administration POST CABG SLIDING SCALE Protocol Levothyroxine Sodium 175 mcg 04/15/20 08:00 04/16/20 05:55 Levothyroxine 175 Mcg Tab PO 175 mcg 0600 MORE Administration Morphine Sulfate 2 mg 04/14/20 14:54 04/14/20 18:02 Morphine 2 Mg/Ml Vial SLOW IVP 2 mg Q15MIN PRN Administration Severe Pain (7-10) Ondansetron HCl 4 mg 04/14/20 14:54 04/15/20 04:13 Ondansetron Pf 4 Mg/2 Ml Vial IVP 4 mg Q6H PRN Administration Nausea/Vomiting Pantoprazole Sodium 40 mg 04/15/20 09:00 04/16/20 09:10 Pantoprazole 40 Mg Tab PO 40 mg DAILY MORE Administration - Exam General Appearance: NAD Neck: supple, no JVD Heart: no gallops, no rubs Respiratory: no wheezes, no rales, rhonchi Gastrointestinal: non-tender, no guarding, no rigidity Extremities: no cyanosis Neurological: no new deficit Hosp A/P - Plan DVT proph w/SCDs Non-ST elevation [place] Three-vessel coronary artery disease requiring emergent CABG Diabetes mellitus type II Hypertension Hypothyroidism Dyslipidemia CKD stage III Hypomagnesemia Plan: Continue aspirin with statin. Started on amiodarone for atrial fibrillation. Plavix started. A.m. labs. Cardiac rehab. Continue other medications as above
[2020-04-16] MEDS: Atorvastatin Calcium 20 MG TAB PO SCH (20:47)
[2020-04-17 04:32] LABS: #Eosinphils 0.1 thou/uL (0.0-0.7); #Lymphocytes 1.7 thou/uL (1.20-3.40); #Monocytes 1.2 thou/uL (0.11-0.59); #Neutrophils 6.7 thou/uL (1.40-6.50); %Eosinophils 1.2 % (0.0-10.0); %Lymphocytes 17.2 % (21.0-51.0); %Monocytes 12.4 % (0.0-10.0); %Neutrophils 69.2 % (42.0-75.0); Mean Corpuscular HGB CONC 33.5 g/dL (32.0-36.0); Mean Corpuscular Hemoglobin 30.3 pg (27.0-31.0); Mean Corpuscular Volume 90.3 fL (78.0-98.0); Platelet Count 88 thou/uL (130-400); RBC Distribution Width 12.8 % (11.5-14.5); Red Blood Cell (RBC) Count 2.98 mill/uL (4.70-6.10); White Blood Cell (WBC) Count 9.7 thou/uL (4.8-10.8)
[2020-04-17 04:55] LABS: Anion Gap 12 mmol/L (10-20); BUN (Urea Nitrogen) 37 mg/dL (8.4-25.7); Calc. Creatinine Clearance 58 mL/min (70-130); Calcium 8.1 mg/dL (7.8-10.44); Carbon Dioxide 27 mmol/L (23-31); Chloride 100 mmol/L (98-107); Glucose 166 mg/dL (80-115); Potassium 4.6 mmol/L (3.5-5.1); Sodium 134 mmol/L (136-145)
[2020-04-17] MEDS: Levothyroxine 175 MCG TAB PO SCH (06:17)
[2020-04-17] MEDS: Aspirin Chewable 81 MG TAB PO SCH (08:28)
[2020-04-17] MEDS: Gabapentin 300 MG CAP PO SCH ×3 (08:28→21:07)
[2020-04-17] MEDS: Clopidogrel Bisulfate 75 MG TAB PO SCH (08:31)
[2020-04-17] MEDS: HYDROcodone/Acetaminophen 5/325 mg Tablet PO PRN ×2 (11:51→21:06)
--- NOTE | 2020-04-17 11:58 | PRG ---
DATE OF SERVICE: 04/17/2020 SUBJECTIVE: Mr. Olmstead had multiple pauses last night over 6 seconds. They occurred after episodes of atrial fibrillation. He is resting comfortably now. OBJECTIVE: VITAL SIGNS: Blood pressure 126/66, pulse 76. LUNGS: Clear. CARDIAC: Normal S1, normal S2. I reviewed the strips, he has paroxysmal atrial fibrillation with long pauses over 6 seconds. He had some symptomatic pauses yesterday. ASSESSMENT: 1. Paroxysmal atrial fibrillation with very long pauses after converting. 2. Ejection fraction of 30% at the time of catheterization, but I suspect the ejection fraction will improve in the postoperative period. PLAN: about pacemaker implantation. He will see the patient. Following that, we will resume beta blockers and probably low-dose amiodarone. Job ID: [id number]
[2020-04-17] MEDS ORDERED: CEFAZOLIN 1 GM VIAL ONE (14:08)
[2020-04-17] MEDS ORDERED: Gentamicin 80 MG/2 ML VIAL ONE (14:08)
[2020-04-17] MEDS ORDERED: Midazolam HCl 2 mg/2 ml Vial ONE (14:46)
[2020-04-17] MEDS ORDERED: Fentanyl 100 MCG/2 ML VIAL ONE (14:48)
[2020-04-17] MEDS ORDERED: Acetaminophen/Codeine 30-300mg Tablet PO PRN ×2 (16:00)
--- NOTE | 2020-04-17 16:23 | RAD ---
EXAM: CHEST ONE VIEW HISTORY: Post cardiac device placement. COMPARISON: 08/28/2020 FINDINGS: Right-sided vascular catheter remains in place. There has been interval placement of a dual-lead left subclavian cardiac pacemaking device. Postoperative changes related to median sternotomy are again seen. The cardiac silhouette is magnified by projection but does appear mildly enlarged. Pulmonary va sculature is within normal limits. Minimal linear densities are seen at the left lung base probably due to mild atelectasis. No pleural effusion or pneumothorax is seen on this exam. Vascular calcifica tions are again seen in the thoracic aorta. No other interval change. IMPRESSION: 1. Interval placement of a dual-lead left subclavian cardiac pacemaking device without evidence of a pneumothorax or pleural effusion. 2. Mild cardiomegaly. 3. Atelectasis left lung base.
[2020-04-17] MEDS: Cephalexin 250 MG CAP PO SCH (18:14)
--- NOTE | 2020-04-17 19:23 | PDOC.HOSPP ---
- Subjective Encounter Date: 04/17/20 Encounter Time: 11:30 Subjective: Patient seen and examined for non-ST elevation [place]. No chest pain or palpitations. Events noted. Found to have long sinus pauses on dent remover. - Objective Vital Signs & Weight: Vital Signs (12 hours) Temp Pulse Pulse Pulse Resp BP BP 04/17/20 15:45 97.7 F 79 18 04/17/20 11:52 97.7 F 78 16 04/17/20 09:25 82 80 136/65 133/60 04/17/20 08:28 04/17/20 07:30 98.2 F 76 16 BP Pulse Ox 04/17/20 15:45 130/71 92 L 04/17/20 11:52 130/72 92 L 04/17/20 09:25 04/17/20 08:28 92 L 04/17/20 07:30 126/66 92 L Weight Weight 192 lb 11.2 oz Most Recent Monitor Data Heart Rate from ECG 87 NIBP 110/67 NIBP BP-Mean 81 Respiration from ECG 17 SpO2 96 I&O: 04/16/20 04/17/20 04/18/20 06:59 06:59 06:59 Intake Total 544.2 960 Output Total 1370 400 Balance -825.8 560 Result Diagrams: 04/17/20 03:53 04/17/20 03:53 Additional Labs: Accuchecks 04/17/20 04/17/20 04/16/20 16:52 05:50 19:59 POC Glucose 134 H 157 H 258 H 04/16/20 10:58 POC Glucose 324 H EKG Reviewed by me: Yes (Sinus pauses on telemetry) Hospitalist ROS - Review of Systems Cardiovascular: denies: chest pain, palpitations, orthopnea, paroxysmal noc. dyspnea, edema, light headedness, other Gastrointestinal: denies: nausea, vomiting, abdominal pain, diarrhea, constipation, melena, hematochezia, other - Medication Medications: Active Medications Generic Name Dose Route Start Last Admin Trade Name Freq PRN Reason Stop Dose Admin Hydrocodone Bitart/Acetaminophen 2 tab 04/14/20 14:54 04/17/20 11:51 Hydrocodone/Acetaminophen 5/325 Mg Tablet PO 2 tab Q4H PRN Administration Severe Pain (7-10) Aspirin 81 mg 04/16/20 09:00 04/17/20 08:28 Aspirin Chewable 81 Mg Tab PO 81 mg DAILY MORE Administration Atorvastatin Calcium 40 mg 04/15/20 07:01 04/16/20 20:47 Atorvastatin Calcium 20 Mg Tab PO 40 mg HS MORE Administration Cephalexin 500 mg 04/17/20 18:00 04/17/20 18:14 Cephalexin 250 Mg Cap PO 04/24/20 18:01 500 mg Q6HR MORE Administration Clopidogrel Bisulfate 75 mg 04/16/20 09:00 04/17/20 08:31 Clopidogrel Bisulfate 75 Mg Tab PO 75 mg DAILY MORE Administration Gabapentin 300 mg 04/15/20 09:00 04/17/20 16:09 Gabapentin 300 Mg Cap PO 300 mg TID MORE Administration Diltiazem HCl 125 mg/ 125 mls @ 0 mls/hr 04/16/20 17:00 04/16/20 17:50 Miscellaneous Medication 1 IVPB 125 mls each/ Sodium Chloride INF MORE Administration Protocol As Directed Insulin Human Regular 0 units 04/15/20 08:00 04/16/20 20:48 Insulin Regular 300 Units/3 Ml Vial SC 8 units Q4H PRN Administration POST CABG SLIDING SCALE Protocol Levothyroxine Sodium 175 mcg 04/15/20 08:00 04/17/20 06:17 Levothyroxine 175 Mcg Tab PO 175 mcg 0600 MORE Administration Morphine Sulfate 2 mg 04/14/20 14:54 04/14/20 18:02 Morphine 2 Mg/Ml Vial SLOW IVP 2 mg Q15MIN PRN Administration Severe Pain (7-10) Ondansetron HCl 4 mg 04/14/20 14:54 04/15/20 04:13 Ondansetron Pf 4 Mg/2 Ml Vial IVP 4 mg Q6H PRN Administration Nausea/Vomiting Pantoprazole Sodium 40 mg 04/15/20 09:00 04/17/20 08:28 Pantoprazole 40 Mg Tab PO 40 mg DAILY MORE Administration - Exam General Appearance: NAD Neck: supple, no JVD Heart: RRR, no gallops Respiratory: no wheezes, no ronchi Gastrointestinal: soft, non-tender, no guarding, no rigidity Extremities: no cyanosis Neurological: no new deficit Hosp A/P - Plan DVT proph w/SCDs Non-ST elevation [place] Three-vessel coronary artery disease requiring emergent CABG Ischemic cardiomyopathychronic systolic heart failure ejection fraction 35% range Post CABG atrial fibrillation Sinus pauses Diabetes mellitus type II Hypertension Hypothyroidism Dyslipidemia CKD stage III Hypomagnesemia Plan: Continue aspirin, Plavix with statins. Was started on Cardizem drip yesterday evening. Continue levothyroxine. Hold beta-blockers or Cardizem due to sinus pauses. Awaiting EP evaluation. No LAISHA inhibitor due to blood pressure in the low normal range continue other medications as above
--- NOTE | 2020-04-17 19:27 | CON ---
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 His problems are: 1. Tachy-donna syndrome/sick sinus syndrome/atrial fibrillation. a. Pauses over 6 seconds on monitor. b. Atrial fibrillation rapid rates are noted. 2. Coronary artery disease. a. Presentation with acute non-ST elevation myocardial infarction. b. Left heart catheterization in 04/13/2019 demonstrates 70% left main, diffuse distal atherosclerosis, 3-vessel coronary artery disease. c. LVEF 30% on initial catheterization. d. LVEF 35% to 40% on 04/13/2020. 3. Diabetes over 10 years, on insulin. 4. Hypertension. 5. Post bypass thrombocytopenia. ALLERGIES: NONE NOTED. MEDICATIONS: Prior to admission included: 1. Glucophage. 2. Lopressor. 3. Zestril. 4. Gabapentin. 5. Amlodipine. 6. Pepcid. 7. Levothyroxine. SUBJECTIVE: Mr. Olmstead is recovering after his bypass surgery from 04/14/2019. He underwent a CABG x4 vessels. He developed atrial fibrillation postoperatively. He has had episodes of tachy and donna arrhythmias both. He had a clear documentation of pauses over 6 seconds, multiple shorter pauses were also noted. Extreme bradycardia with minimal escape rhythm for about 10 seconds is documented as well. On the other hand, he also has significant tachycardia with atrial fibrillation. Management of his rate is very difficult, thus I was consulted for EP evaluation. Currently, he denies PND, orthopnea. No stroke-like symptoms. No neurological deficits. No fever, chills, or cough. He is mostly still in the bed, has not messed up with these episodes. Respiratory system otherwise unremarkable. PAST MEDICAL HISTORY: As above. SOCIAL HISTORY: The patient denies smoking, EtOH, or drug abuse, and occasionally uses marijuana for pain control. PAST SURGICAL HISTORY: Significant for right four digit amputation and also history of hypothyroidism. OBJECTIVE DATA: VITAL SIGNS: Blood pressure is 130/72, heart rate 78, respiratory rate of 16, temperature 97.7 degrees Fahrenheit. GENERAL: Alert and oriented man, in no apparent distress. NECK: Supple. Jugular veins not distended. CHEST: Coarse. No crackles. CARDIAC: Heart sounds are regular rate and rhythm. No murmur or gallop. ABDOMEN: Benign. Bowel sounds positive. EXTREMITIES: Lower extremities without edema, clubbing, or cyanosis. Pulses are adequate. NEUROLOGIC: The patient is nonfocal. MUSCULOSKELETAL: No joint swelling or deformities. SKIN: Without rash. Midsternal scar is adequately healing. DATABASE: The EKG initially from April 2019 reveals sinus rhythm, rate of 76 beats per minute, nonspecific ST-T changes, narrow QRS at 82 milliseconds, QTc 443 milliseconds. Telemetry strips did reveal sinus rhythm, then development of atrial fibrillation noted on the with paroxysmal rapid rates. Atypical atrial flutters are seen and pauses over 6 seconds were noted and over 10 seconds extreme bradycardia was also seen with suboptimal junctional escape. Heart rates in the 20s are noted. LABORATORY DATA: White count is 9.7, hemoglobin 9, platelet count is 88. INR is 1.2 on admission. Sodium 134, potassium 4.6, BUN is 37, creatinine 1.54. The 2D echo from 04/13/2019 shows LVEF of 35% to 40%, mild MR is seen. ASSESSMENT/PLAN: 1. Mr. Olmstead is a pleasant 70-year-old man with prior history of diabetes, hypertension, who presented with a [id number] myocardial infarction. He was found to have left main and 3-vessel disease. He underwent CABG x4 vessel. Initially, the LVEF was 30%, improving 35% to 40% on followup echocardiogram due to revascularization, likely normalization LVEF is expected long-term. On the other hand, he developed episodes of atrial fibrillation with rapid rates. We have also seen severe pausing with extreme bradycardia over 10 seconds. This makes his heart rhythm difficult to control, which could be hemodynamically significant. Hence, it would be reasonable to consider pacemaker implantation. His LVEF again is expected to improve. At this point, he is not a candidate for prophylactic ICD implant. Risks and benefits of the procedure, he understands of risk of infection, bleeding, pneumothorax, tamponade, lead dislodgement, and device recalls. We will proceed at the nearest available time. 2. Thrombocytopenia, elevated bleeding risk, but not extreme at this point. 3. Coronary artery disease, ischemic cardiomyopathy. Standard heart failure regimen as above. 4. Paroxysmal atrial fibrillation, likely would benefit from transient suppression with amiodarone. Job ID: [id number]
[2020-04-17] MEDS: Atorvastatin Calcium 20 MG TAB PO SCH (21:05)
[2020-04-17] MEDS: Insulin Regular 300 UNITS/3 ML VIAL SC PRN (21:09)
[2020-04-17] MEDS ORDERED: Carvedilol 6.25 MG TAB PO SCH (21:30)
[2020-04-18] MEDS: Cephalexin 250 MG CAP PO SCH ×5 (00:38→23:17)
[2020-04-18] MEDS: HYDROcodone/Acetaminophen 5/325 mg Tablet PO PRN (06:05)
[2020-04-18] MEDS: Insulin Regular 300 UNITS/3 ML VIAL SC PRN ×3 (06:06→17:48)
[2020-04-18] MEDS: Levothyroxine 175 MCG TAB PO SCH (06:06)
[2020-04-18] MEDS: Lisinopril 2.5 MG TAB PO SCH (10:40)
[2020-04-18] MEDS: Gabapentin 300 MG CAP PO SCH ×3 (10:40→20:26)
[2020-04-18] MEDS: Clopidogrel Bisulfate 75 MG TAB PO SCH (10:40)
[2020-04-18] MEDS: Aspirin Chewable 81 MG TAB PO SCH (10:40)
[2020-04-18] MEDS: Carvedilol 6.25 MG TAB PO SCH ×2 (10:41→17:47)
--- NOTE | 2020-04-18 12:01 | DIS ---
DATE OF ADMISSION: 04/13/2020 DATE OF DISCHARGE: 04/18/2020 DIAGNOSES: 1. Coronary artery disease. 2. Hypertension. 3. Dyslipidemia. 4. Diabetes mellitus. 5. Non-ST elevation myocardial infarction. PROCEDURES: 1. Cardiac catheterization. 2. Coronary artery bypass grafting on emergent fashion x4 -. a. Left internal mammary artery to left anterior descending. b. Reverse saphenous vein to ramus, diagonal, posterior descending artery. 3. Permanent pacemaker placement. DESCRIPTION OF HOSPITAL STAY: Mr. Olmstead was brought through the Emergency Department with non-ST elevation myocardial infarction. He underwent cardiac catheterization the following morning. He was found to have critical left main disease and was brought for bypass as above on an emergent basis. Postoperatively, he has done well. He had some short bursts of atrial fibrillation that with beta-blockade. He had significant pauses requiring pacemaker placement. Other than this, he has had an uncomplicated postoperative recovery. He is being discharged home in good condition, to follow up with me in 2 weeks, Dr[address] Jones in a month. DISCHARGE MEDICATIONS: 1. Aspirin 81 mg daily. 2. Plavix 75 mg daily. 3. Zestril 2.5 mg daily. 4. Lipitor 40 mg at bedtime. 5. Coreg 6.25 mg daily. 6. Pepcid 20 mg b.i.d. 7. Levothyroxine 175 mcg daily. 8. Metformin 1000 mg b.i.d. 9. Gabapentin 300 mg t.i.d. 10. [place] 5/325 one to two q.6 hours p.r.n. pain. Follow up is as above. Job ID: [id number]
--- NOTE | 2020-04-18 13:38 | PDOC.CPN ---
- Subjective Date: 04/18/20 Time: 13:36 Interval history: No new issues. Doing well. Had normal BM. - Review of Systems General: denies: fever/chills, weight/appetite/sleep changes, night sweats, fatigue Respiratory: denies: cough, congestion, shortness of breath, exercise intolerance Cardiovascular: denies: chest pain, palpitation, edema, paroxysmal nocturnal dyspnea, orthopnea Gastrointestinal: denies: nausea, vomiting, diarrhea, constipation, abd pain, GI bleeding Musculoskeletal: denies: pain, tenderness, stiffness, swelling, arthritis/arthralgias Neurological: denies: numbness, syncope, seizure, weakness - Objective Allergies/Adverse Reactions: Allergies Allergy/AdvReac Type Severity Reaction Status Date / Time No Known Drug Allergies Allergy Verified 04/13/20 08:46 Visit Medications: Current Medications Acetaminophen (Acetaminophen 325 Mg Tab) 650 mg PO Q6H PRN PRN Reason: Headache/Fever Or Mild Pain Acetaminophen/Codeine Phosphate (Acetaminophen/Codeine 30-300mg Tablet) 1 tab PO Q4H PRN PRN Reason: Mild Pain (1-3) Acetaminophen/Codeine Phosphate (Acetaminophen/Codeine 30-300mg Tablet) 2 tab PO Q4H PRN PRN Reason: Moderate Pain (4-6) Hydrocodone Bitart/Acetaminophen (Hydrocodone/Acetaminophen 5/325 Mg Tablet) 1 tab PO Q4H PRN PRN Reason: Moderate Pain (4-6) Hydrocodone Bitart/Acetaminophen (Hydrocodone/Acetaminophen 5/325 Mg Tablet) 2 tab PO Q4H PRN PRN Reason: Severe Pain (7-10) Last Admin: 04/18/20 06:05 Dose: 2 tab Documented by: Al Hydroxide/Mg Hydroxide (Mag-Al 1200 Mg/1200 Mg/30 Ml Udcup) 30 ml PO Q4H PRN PRN Reason: Indigestion Albuterol/Ipratropium (Ipratropium/Albuterol Sulfate 3 Ml Neb) 3 ml NEB [id number] PRN PRN Reason: SOB Amiodarone HCl (Amiodarone 200 Mg Tab) 400 mg PO BID MORE Aspirin (Aspirin Chewable 81 Mg Tab) 81 mg PO DAILY [facility] Last Admin: 04/18/20 10:40 Dose: 81 mg Documented by: Atorvastatin Calcium (Atorvastatin Calcium 20 Mg Tab) 40 mg PO HS [facility] Last Admin: 04/17/20 21:05 Dose: 40 mg Documented by: Bisacodyl (Bisacodyl 5 Mg Tab) 10 mg PO Q12H PRN PRN Reason: Constipation Bisacodyl (Bisacodyl 10 Mg Supp) 10 mg CA Q12H PRN PRN Reason: Constipation Carvedilol (Carvedilol 6.25 Mg Tab) 6.25 mg PO BID-[facility] Last Admin: 04/18/20 10:41 Dose: 6.25 mg Documented by: Cephalexin (Cephalexin 250 Mg Cap) 500 mg PO Q6HR [facility] Stop: 04/24/20 18:01 Last Admin: 04/18/20 12:52 Dose: 500 mg Documented by: Clopidogrel Bisulfate (Clopidogrel Bisulfate 75 Mg Tab) 75 mg PO DAILY [facility] Last Admin: 04/18/20 10:40 Dose: 75 mg Documented by: Dextrose/Water (Dextrose 50% Abboject 50 Ml Syringe) 25 gm SLOW IVP PRN PRN PRN Reason: PER HYPOGLYCEMIC PROTOCOL Gabapentin (Gabapentin 300 Mg Cap) 300 mg PO TID [facility] Last Admin: 04/18/20 10:40 Dose: 300 mg Documented by: Glucagon (Glucagon 1 Mg/Ml Vial) 1 mg SC PRN PRN PRN Reason: PER HYPOGLYCEMIC PROTOCOL Guaifenesin/Dextromethorphan (Guaifenesin Dm 100-10/5 Ml Udcup) 15 ml PO Q4H PRN PRN Reason: Cough Hydralazine HCl (Hydralazine 20 Mg/Ml Vial) 10 mg SLOW IVP Q6H PRN PRN Reason: To Maintain SBP< 140mmHG Nitroglycerin/Dextrose (Nitroglycerin 50 Mg/250 Ml Bot) 250 mls @ 0 mls/hr IVPB PRN PRN; Protocol PRN Reason: To Maintain SBP< 140mmHG Dextrose/Water (D5w) 1,000 mls @ 0 mls/hr IV INF PRN PRN Reason: PRN HYPOGLYCEMIC PROTOCOL Diltiazem HCl 125 mg/Miscellaneous Medication 1 each/ Sodium Chloride 125 mls @ 0 mls/hr IVPB INF [facility]; Protocol Last Admin: 04/16/20 17:50 Dose: 125 mls Documented by: Insulin Human Regular (Insulin Regular 300 Units/3 Ml Vial) 0 units SC Q4H PRN; Protocol PRN Reason: POST CABG SLIDING SCALE Last Admin: 04/18/20 12:50 Dose: 4 units Documented by: Levothyroxine Sodium (Levothyroxine 175 Mcg Tab) 175 mcg PO 0600 [facility] Last Admin: 04/18/20 06:06 Dose: 175 mcg Documented by: Lisinopril (Lisinopril 2.5 Mg Tab) 2.5 mg PO DAILY [facility] Last Admin: 04/18/20 10:40 Dose: 2.5 mg Documented by: Ondansetron HCl (Ondansetron Pf 4 Mg/2 Ml Vial) 4 mg IVP Q6H PRN PRN Reason: Nausea/Vomiting Last Admin: 04/15/20 04:13 Dose: 4 mg Documented by: Pantoprazole Sodium (Pantoprazole 40 Mg Tab) 40 mg PO DAILY [facility] Last Admin: 04/18/20 10:41 Dose: 40 mg Documented by: Potassium Chloride (Potassium Chloride 20 Meq/100 Ml Premix Bag) 20 meq IVPB PRN PRN PRN Reason: K level </= 4.0 Promethazine HCl (Promethazine Hcl 25 Mg/Ml Vial) 6.25 mg IM Q4H PRN PRN Reason: Nausea/Vomiting Sodium Chloride (Flush - Normal Saline 10 Ml Syringe) 10 ml IVF PRN PRN PRN Reason: Saline Flush Sodium Chloride (Flush - Normal Saline 10 Ml Syringe) 10 ml IVF PRN PRN PRN Reason: Saline Flush Vital Signs & Weight: Vital Signs Temp Pulse Resp BP Pulse Ox 04/18/20 10:40 68 04/18/20 08:00 96 04/18/20 04:00 98.2 F 68 15 101/56 L 95 04/18/20 01:51 96 Weight 191 lb 1.6 oz - Physical Exam General: alert & oriented x3 HEENT: mucus membranes moist Neck: supple neck Cardiac: regular rate and rhythm Lungs: clear to auscultation Neuro: grossly intact Abdomen: active bowel sounds Extremities: no edema Skin: clear Musculoskeletal: no pain - Labs Result Diagrams: 04/17/20 03:53 04/17/20 03:53 Troponin/CKMB CK-MB (CK-2) 4.1 ng/mL (0-6.6) 04/13/20 09:19 Troponin I 0.418 ng/mL (< 0.028) H* 04/13/20 09:19 - Telemetry Sinus rhythms and dysrhythmias: sinus rhythm - Assessment/Plan Assessment/Plan: 1. Multivessel CAD. 2. S/P CABG 3. Paroxysmal afib, post op. Currently in sinus 4. Ischemic CM EF today at 45% PLAN: - No longer candidate for lifevest with improved EF. - Continue current meds. - Continue PO amiodarone load with 400 mg BID for 10 days then down to 200 daily. - ASA/Statin/BB/ACEI.
--- NOTE | 2020-04-18 16:15 | PDOC.HOSPP ---
- Subjective Encounter Date: 04/18/20 Encounter Time: 13:30 Subjective: Patient seen and examined for non-ST elevation NE. Denies any chest pain or shortness of breath. No cough, shortness of breath or wheezing reported. - Objective Vital Signs & Weight: Vital Signs (12 hours) Temp Pulse Resp BP Pulse Ox 04/18/20 16:00 98.2 F 71 18 141/73 H 94 L 04/18/20 12:00 98.0 F 70 16 133/69 95 04/18/20 10:40 68 04/18/20 08:00 97.8 F 68 17 125/74 94 L Weight Weight 191 lb 1.6 oz Most Recent Monitor Data Heart Rate from ECG 87 NIBP 110/67 NIBP BP-Mean 81 Respiration from ECG 17 SpO2 96 I&O: 04/17/20 04/18/20 04/19/20 06:59 06:59 06:59 Intake Total 960 Output Total 400 Balance 560 Result Diagrams: 04/17/20 03:53 04/17/20 03:53 Additional Labs: Accuchecks 04/18/20 04/18/20 04/17/20 10:48 06:02 20:57 POC Glucose 181 H 149 H 168 H 04/17/20 16:52 POC Glucose 134 H Abnormal Lab Results - Last 48 hrs 04/14/20 10:28: Crossmatch See Detail 04/17/20 03:53: Sodium 134 L, BUN 37 H, Creatinine 1.54 H 04/17/20 03:53: RBC 2.98 L, Hgb 9.0 L, Hct 26.9 L, Plt Count 88 L, Lymphocytes % 17.2 L, Monocytes % 12.4 H, Neutrophils # 6.7 H, Monocytes # 1.2 H Radiology Reviewed by me: No (Repeat echoejection fraction 45%) EKG Reviewed by me: Yes (Sinus rhythm on telemetry) Hospitalist ROS - Review of Systems Respiratory: denies: cough, dry, shortness of breath, hemoptysis, SOB with excertion, pleuritic pain, sputum, wheezing, other Cardiovascular: denies: chest pain, palpitations, orthopnea, paroxysmal noc. dyspnea, edema, light headedness, other - Medication Medications: Active Medications Generic Name Dose Route Start Last Admin Trade Name Freq PRN Reason Stop Dose Admin Hydrocodone Bitart/Acetaminophen 2 tab 04/14/20 14:54 04/18/20 06:05 Hydrocodone/Acetaminophen 5/325 Mg Tablet PO 2 tab Q4H PRN Administration Severe Pain (7-10) Aspirin 81 mg 04/16/20 09:00 04/18/20 10:40 Aspirin Chewable 81 Mg Tab PO 81 mg DAILY MORE Administration Atorvastatin Calcium 40 mg 04/15/20 07:01 04/17/20 21:05 Atorvastatin Calcium 20 Mg Tab PO 40 mg HS MORE Administration Carvedilol 6.25 mg 04/18/20 08:00 04/18/20 10:41 Carvedilol 6.25 Mg Tab PO 6.25 mg BID-WM MORE Administration Cephalexin 500 mg 04/17/20 18:00 04/18/20 12:52 Cephalexin 250 Mg Cap PO 04/24/20 18:01 500 mg Q6HR MORE Administration Clopidogrel Bisulfate 75 mg 04/16/20 09:00 04/18/20 10:40 Clopidogrel Bisulfate 75 Mg Tab PO 75 mg DAILY MORE Administration Gabapentin 300 mg 04/15/20 09:00 04/18/20 16:06 Gabapentin 300 Mg Cap PO 300 mg TID MORE Administration Insulin Human Regular 0 units 04/15/20 08:00 04/18/20 12:50 Insulin Regular 300 Units/3 Ml Vial SC 4 units Q4H PRN Administration POST CABG SLIDING SCALE Protocol Levothyroxine Sodium 175 mcg 04/15/20 08:00 04/18/20 06:06 Levothyroxine 175 Mcg Tab PO 175 mcg 0600 MORE Administration Lisinopril 2.5 mg 04/18/20 09:00 04/18/20 10:40 Lisinopril 2.5 Mg Tab PO 2.5 mg DAILY MORE Administration Ondansetron HCl 4 mg 04/14/20 14:54 04/15/20 04:13 Ondansetron Pf 4 Mg/2 Ml Vial IVP 4 mg Q6H PRN Administration Nausea/Vomiting Pantoprazole Sodium 40 mg 04/15/20 09:00 04/18/20 10:41 Pantoprazole 40 Mg Tab PO 40 mg DAILY MORE Administration - Exam Neck: supple, no JVD Heart: RRR, no gallops Respiratory: no wheezes, no ronchi Gastrointestinal: soft, non-tender, normal bowel sounds Extremities: no cyanosis Neurological: no new deficit Musculoskeletal: generalized weakness Psychiatric: normal affect, A&O x 3 Hosp A/P - Plan DVT proph w/SCDs Non-ST elevation NE Three-vessel coronary artery disease requiring emergent CABG Ischemic cardiomyopathychronic systolic heart failure ejection fraction 35% range Post CABG atrial fibrillation Sinus pauses Diabetes mellitus type II Hypertension Hypothyroidism Dyslipidemia CKD stage III Hypomagnesemia Hyponatremia Plan: Continue aspirin with Plavix. Started on amiodarone loading. Patient will require amiodarone 400 mg twice daily for 10 days then 200 mg daily. Repeat echocardiogram showed ejection fraction 45%. Does not need LifeVest per cardiology continue cardiac rehab. Continue statins. Continue carvedilol 6.25 twice daily. Continue lisinopril and levothyroxine.
--- NOTE | 2020-04-18 16:17 | PDOC.EP ---
- Subjective Date: 04/18/20 Time: 16:16 Interval History: Stable 1 days post PPM implant. Short afib/afl episode yesterday. - Review of Systems Constitutional: denies: chills, fever, malaise, sweats, weakness, other Respiratory: denies: cough, dry, hemoptysis, pleuritic pain, shortness of breath, SOB with excertion, sputum, wheezing, other Cardiology: denies: chest pain, edema, heart racing, light headedness, paroxysmal noc. dyspnea, orthopnea, palpitations, passing out, pleuritic pain, pressure, swelling, other Gastrointestinal: denies: abdominal pain, constipation, diarrhea, hematochezia, melena, nausea, vomitting, other Musculoskeletal: denies: unstable gait, falls, neck pain, shoulder pain, arm pain, hand pain, leg pain, foot pain, other Neurological: denies: headache, vision changes, other - Objective Allergies/Adverse Reactions: Allergies Allergy/AdvReac Type Severity Reaction Status Date / Time No Known Drug Allergies Allergy Verified 04/13/20 08:46 Current Medications Acetaminophen (Acetaminophen 325 Mg Tab) 650 mg PO Q6H PRN PRN Reason: Headache/Fever Or Mild Pain Acetaminophen/Codeine Phosphate (Acetaminophen/Codeine 30-300mg Tablet) 1 tab PO Q4H PRN PRN Reason: Mild Pain (1-3) Acetaminophen/Codeine Phosphate (Acetaminophen/Codeine 30-300mg Tablet) 2 tab PO Q4H PRN PRN Reason: Moderate Pain (4-6) Hydrocodone Bitart/Acetaminophen (Hydrocodone/Acetaminophen 5/325 Mg Tablet) 1 tab PO Q4H PRN PRN Reason: Moderate Pain (4-6) Hydrocodone Bitart/Acetaminophen (Hydrocodone/Acetaminophen 5/325 Mg Tablet) 2 tab PO Q4H PRN PRN Reason: Severe Pain (7-10) Last Admin: 04/18/20 06:05 Dose: 2 tab Documented by: Al Hydroxide/Mg Hydroxide (Mag-Al 1200 Mg/1200 Mg/30 Ml Udcup) 30 ml PO Q4H PRN PRN Reason: Indigestion Albuterol/Ipratropium (Ipratropium/Albuterol Sulfate 3 Ml Neb) 3 ml NEB [id number] PRN PRN Reason: SOB Amiodarone HCl (Amiodarone 200 Mg Tab) 400 mg PO BID [facility] Aspirin (Aspirin Chewable 81 Mg Tab) 81 mg PO DAILY [facility] Last Admin: 04/18/20 10:40 Dose: 81 mg Documented by: Atorvastatin Calcium (Atorvastatin Calcium 20 Mg Tab) 40 mg PO HS [facility] Last Admin: 04/17/20 21:05 Dose: 40 mg Documented by: Bisacodyl (Bisacodyl 5 Mg Tab) 10 mg PO Q12H PRN PRN Reason: Constipation Bisacodyl (Bisacodyl 10 Mg Supp) 10 mg [place] Q12H PRN PRN Reason: Constipation Carvedilol (Carvedilol 6.25 Mg Tab) 6.25 mg PO BID-[facility] Last Admin: 04/18/20 10:41 Dose: 6.25 mg Documented by: Cephalexin (Cephalexin 250 Mg Cap) 500 mg PO Q6HR [facility] Stop: 04/24/20 18:01 Last Admin: 04/18/20 12:52 Dose: 500 mg Documented by: Clopidogrel Bisulfate (Clopidogrel Bisulfate 75 Mg Tab) 75 mg PO DAILY [facility] Last Admin: 04/18/20 10:40 Dose: 75 mg Documented by: Dextrose/Water (Dextrose 50% Abboject 50 Ml Syringe) 25 gm SLOW IVP PRN PRN PRN Reason: PER HYPOGLYCEMIC PROTOCOL Gabapentin (Gabapentin 300 Mg Cap) 300 mg PO TID [facility] Last Admin: 04/18/20 16:06 Dose: 300 mg Documented by: Glucagon (Glucagon 1 Mg/Ml Vial) 1 mg SC PRN PRN PRN Reason: PER HYPOGLYCEMIC PROTOCOL Guaifenesin/Dextromethorphan (Guaifenesin Dm 100-10/5 Ml Udcup) 15 ml PO Q4H PRN PRN Reason: Cough Hydralazine HCl (Hydralazine 20 Mg/Ml Vial) 10 mg SLOW IVP Q6H PRN PRN Reason: To Maintain SBP< 140mmHG Nitroglycerin/Dextrose (Nitroglycerin 50 Mg/250 Ml Bot) 250 mls @ 0 mls/hr IVPB PRN PRN; Protocol PRN Reason: To Maintain SBP< 140mmHG Dextrose/Water (D5w) 1,000 mls @ 0 mls/hr IV INF PRN PRN Reason: PRN HYPOGLYCEMIC PROTOCOL Insulin Human Regular (Insulin Regular 300 Units/3 Ml Vial) 0 units SC Q4H PRN; Protocol PRN Reason: POST CABG SLIDING SCALE Last Admin: 04/18/20 12:50 Dose: 4 units Documented by: Levothyroxine Sodium (Levothyroxine 175 Mcg Tab) 175 mcg PO 0600 [facility] Last Admin: 04/18/20 06:06 Dose: 175 mcg Documented by: Lisinopril (Lisinopril 2.5 Mg Tab) 2.5 mg PO DAILY [facility] Last Admin: 04/18/20 10:40 Dose: 2.5 mg Documented by: Ondansetron HCl (Ondansetron Pf 4 Mg/2 Ml Vial) 4 mg IVP Q6H PRN PRN Reason: Nausea/Vomiting Last Admin: 04/15/20 04:13 Dose: 4 mg Documented by: Pantoprazole Sodium (Pantoprazole 40 Mg Tab) 40 mg PO DAILY [facility] Last Admin: 04/18/20 10:41 Dose: 40 mg Documented by: Potassium Chloride (Potassium Chloride 20 Meq/100 Ml Premix Bag) 20 meq IVPB PRN PRN PRN Reason: K level </= 4.0 Promethazine HCl (Promethazine Hcl 25 Mg/Ml Vial) 6.25 mg IM Q4H PRN PRN Reason: Nausea/Vomiting Sodium Chloride (Flush - Normal Saline 10 Ml Syringe) 10 ml IVF PRN PRN PRN Reason: Saline Flush Sodium Chloride (Flush - Normal Saline 10 Ml Syringe) 10 ml IVF PRN PRN PRN Reason: Saline Flush Vital Signs & Weight: Vital Signs Temp Pulse Resp BP Pulse Ox 04/18/20 16:00 98.2 F 71 18 141/73 H 94 L 04/18/20 12:00 98.0 F 70 16 133/69 95 04/18/20 10:40 68 04/18/20 08:00 97.8 F 68 17 125/74 94 L Weight 191 lb 1.6 oz I/O: I/O 04/17/20 04/18/20 04/19/20 06:59 06:59 06:59 Intake Total 960 Output Total 400 Balance 560 - Quality Measures CV meds: Aspirin: Yes, Plavix/Efficent/Brilinta: Yes - Physical Exam General: alert & oriented x3, appears well HEENT: normocephaly Neck: no JVD/HJR Cardiology: no murmur Lungs: normal breath sounds, no wheezes, no rales Neurology: grossly intact Abdomen: unremarkable, soft, non-tender Extremities: warm Skin: device site stable w/o swelling, left sided device. negative: hematoma, swelling Musculoskeletal: no pain - Chadsvasc Risk factors Congestive heart failure: 1 Hypertension: 1 Age 65-74: 1 Vascular disease: 1 Risk Score: 4 - Labs Result Diagrams: 04/17/20 03:53 04/17/20 03:53 - EKG Interpretation EKG Method: Telemetry EKG shows: Sinus rhythm, Typical atrial flutter - Device Device: dual, pacemaker Device Result: [employer] - Assessment/Plan Assessment/Plan: Mr. Olmstead is a pleasant 70-year-old man with prior history of diabetes, hypertension, who presented with a [id number] myocardial infarction. He was found to have left main and 3-vessel disease. He underwent CABG x4 vessel. Initially, the LVEF was 30%, improving 35% to 40% on followup echocardiogram due to revascularization, likely normalization LVEF is expected long-term. On the other hand, he developed episodes of atrial fibrillation with rapid rates. We have also seen severe pausing with extreme bradycardia over 10 seconds. This makes his heart rhythm difficult to control, which could be hemodynamically significant. Hence, it would be reasonable to consider pacemaker implantation. His LVEF has improved. At this point, he is not a candidate for prophylactic ICD implant. 1. Tachy-donna syndrome/sick sinus syndrome/atrial fibrillation. a. Pauses over 6 seconds on monitor. b. Atrial fibrillation rapid rates are noted. c. S/P PPM implant. 2. Coronary artery disease. a. Presentation with acute non-ST elevation myocardial infarction. b. Left heart catheterization in 04/13/2019 demonstrates 70% left main, diffuse distal atherosclerosis, 3-vessel coronary artery disease. c. LVEF 30% on initial catheterization. d. LVEF 35% to 40% on 04/13/2020. 3. Diabetes over 10 years, on insulin. 4. Hypertension. 5. Post bypass thrombocytopenia. 1. S/P PPM implant POD#1 2. Thrombocytopenia, elevated bleeding risk, but not extreme at this point. 3. Coronary artery disease, ischemic cardiomyopathy. Standard heart failure regimen as above. 4. Paroxysmal atrial fibrillation/flutter, agree with transient suppression with PO amiodarone taper. Turned atrial ATP on.Consider PVAI practical nurse if afib recurs after stopping amiodarone. 5. Not on oral anticoagulant hence DAPT and borderline PLT counts. Please discharge on Keflex x1 week post device. Will have wound check arranged in 2 weeks. Woudl sign off. Call if further questions.
[2020-04-18] MEDS: Atorvastatin Calcium 20 MG TAB PO SCH (20:26)
[2020-04-18] MEDS: Amiodarone 200 MG TAB PO SCH (20:26)
[2020-04-19] MEDS: Cephalexin 250 MG CAP PO SCH ×2 (05:07→11:07)
[2020-04-19] MEDS: Levothyroxine 175 MCG TAB PO SCH (05:08)
[2020-04-19] MEDS: Insulin Regular 300 UNITS/3 ML VIAL SC PRN (05:50)
[2020-04-19] MEDS: Aspirin Chewable 81 MG TAB PO SCH (08:43)
[2020-04-19] MEDS: Amiodarone 200 MG TAB PO SCH (08:44)
[2020-04-19] MEDS: Lisinopril 2.5 MG TAB PO SCH (08:44)
[2020-04-19] MEDS: Clopidogrel Bisulfate 75 MG TAB PO SCH (08:44)
[2020-04-19] MEDS: Gabapentin 300 MG CAP PO SCH (08:45)
[2020-04-19] MEDS: Carvedilol 6.25 MG TAB PO SCH (08:45)
[2020-04-19 11:07] VITALS: TEMP 97.9
[2020-04-19] MEDS: HYDROcodone/Acetaminophen 5/325 mg Tablet PO PRN (11:08)
[2020-04-19 12:38] VITALS: BP 142/65
--- NOTE | 2020-04-19 16:00 | PDOC.DS.DS ---
Provider - Provider Date of Admission: 04/13/20 07:51 Date of Discharge: 04/19/20 Admitting Provider: Vikas Cartagena MD Consultations: Cardiology, Other (Cardiovascular) Primary Care Physician: Unknown Course - Hospital Course Hospital Course: Patient is a 70-year-old male with diabetes mellitus type II, hypertension and hyperlipidemia who presented to the hospital on 04/13 with chest discomfort. His workup was consistent with non-ST elevation DC with a maximum troponin of 0.418. He was started on aspirin, Lovenox, beta-blockers and LAISHA inhibitor. He was evaluated by cardiology and underwent cardiac catheterization that showed left main coronary stenosis approximately 70 percent with diffuse distal atherosclerosis and left ventricle ejection fraction of 30 percent. He underwent emergent coronary artery bypass grafting 4. Postoperatively he was managed in the intensive care unit. Repeat echocardiogram post CABG showed improvement in ejection fraction of 45 percent. You also developed atrial fibrillation and sinus pauses after surgery requiring pacemaker placement as well as Imuran. He has been cleared by consultants for discharge. Final diagnosis: Non-ST elevation DC Three-vessel coronary artery disease requiring emergent CABG Ischemic cardiomyopathychronic systolic heart failure ejection fraction 35% rangeRepeat echo after CABG was 45 percent Post CABG atrial fibrillation Sinus pauses requiring pacemaker placement Diabetes mellitus type II Hypertension Hypothyroidism Dyslipidemia CKD stage III Hypomagnesemia Hyponatremia Resuscitation Status: 04/13/20 03:20 Resuscitation Status Routine Co-Sign Provider: Resuscitation Status: FULL: Full Resuscitation Discussed with: - Labs Lab Results: 04/17/20 03:53 04/17/20 03:53 Abnormal Lab Results - Last 48 hrs 04/14/20 10:28: Crossmatch See Detail - Physical Exam Vitals: Vital Signs (12 hours) Temp Pulse Pulse Pulse Resp BP BP 04/19/20 12:35 64 63 142/65 H 140/73 04/19/20 11:05 97.9 F 60 14 04/19/20 08:40 97.4 F L 65 16 BP Pulse Ox 04/19/20 12:35 04/19/20 11:05 132/64 95 04/19/20 08:40 171/84 H 98 Weight Weight 187 lb 9.6 oz Most Recent Monitor Data Heart Rate from ECG 87 NIBP 110/67 NIBP BP-Mean 81 Respiration from ECG 17 SpO2 96 Physical Exam: The patient was seen and examined on the day of discharge. Plan - Discharge Medications Prescriptions: HYDROcodone/Acetaminophen [[place] 5-325 Tablet] 1 each PO Q6HR PRN #10 tablet PRN Reason: Severe Pain (7-10) Aspirin Chewable [Aspirin Chewable Tablet] 81 mg PO DAILY #120 tab Amiodarone [Cordarone] 200 mg PO ASDIR #100 tab Carvedilol [Coreg] 6.25 mg PO BID-WM #60 tab Cephalexin [Keflex] 500 mg PO Q6H #24 cap Atorvastatin Calcium [Lipitor] 40 mg PO HS #90 tab HYDROcodone Bit/APAP 5/325 [[place]] 2 tab PO Q4H PRN #40 tab PRN Reason: Severe Pain (7-10) Clopidogrel Bisulfate [Plavix] 75 mg PO DAILY #90 tab Lisinopril [Zestril] 2.5 mg PO DAILY #30 tab Home Medications: Medication Instructions Recorded Confirmed Type Famotidine [Pepcid] 20 mg PO BID PRN 04/13/20 04/21/20 History Gabapentin 300 mg PO TID 04/13/20 04/21/20 History Levothyroxine Sodium 175 mcg PO QAM 04/13/20 04/21/20 History [Levothyroxine] diphenhydrAMINE [Benadryl] 50 mg PO HS PRN 04/13/20 04/21/20 History metFORMIN [Glucophage] 1,000 mg PO BID-WM 04/13/20 04/21/20 History Aspirin Chewable [Aspirin Chewable 81 mg PO DAILY #120 tab 04/18/20 04/21/20 Rx Tablet] Atorvastatin Calcium [Lipitor] 40 mg PO HS #90 tab 04/18/20 04/21/20 Rx Clopidogrel Bisulfate [Plavix] 75 mg PO DAILY #90 tab 04/18/20 04/21/20 Rx HYDROcodone Bit/APAP 5/325 [[place]] 2 tab PO Q4H PRN #40 tab 04/18/20 04/21/20 Rx Amiodarone [Cordarone] 200 mg PO ASDIR #100 tab 04/19/20 04/21/20 Rx Carvedilol [Coreg] 6.25 mg PO BID-WM #60 tab 04/19/20 04/21/20 Rx Cephalexin [Keflex] 500 mg PO Q6H #24 cap 04/19/20 04/21/20 Rx HYDROcodone/Acetaminophen [[place] 1 each PO Q6HR PRN #10 tablet 04/19/20 04/21/20 Rx 5-325 Tablet] Lisinopril [Zestril] 2.5 mg PO DAILY #30 tab 04/19/20 04/21/20 Rx Allergies: No Known Drug Allergies Allergy (Verified 04/13/20 08:46) - Discharge Instructions Activity:: Activity Restrictions (no driving. No lifting over 15#. Shower daily. No bath, hot tub, pool) Nourishment:: Heart Healthy Diet Therapies:: Outpatient Cardiac Rehab Equipment/Supplies:: Not Applicable IV Therapy:: Not Applicable - Follow up Plan Referrals: Cardiac Rehab - [place] [Outside] - 7 Days (Your doctor has ordered outpatient cardiac rehab for you to begin within 1-2 weeks after you go home from the hospital. The location nearest to you is the [facility]. The front office in [place] will call you in 3-5 days to get you scheduled for your evaluation. If you do not receive a call, please reach out to us at [phone] and request an appointment. ) Michaela Hassan, JEWISH HISTORY PROFESSOR [Allied Health Professional] - 04/23/20 1:15 pm (Please attend scheduled appointment or call to reschedule. ) Hemant Figueroa MD [Active] - 05/05/20 1:00 pm (Please attend scheduled appointment or call to reschedule. ) Marily Jones MD [Active] - 3-4 Weeks (Please call after you get home to set up your hospital follow up appt for 3-4 weeks from your Discharge date!) Disposition: HOME Quality - Care Measures CORE MEASURES:: AMI - Stroke/TIA Did you prescribe a statin medication?: Yes
== END 2020-04-19 12:50 | disposition home or self-care (01) | DRG 234 ==
LOC: ERS 23:47 → ERHOLD 04-13 01:25 → OBSVTOIN 04-13 07:51 → 2NO 04-13 11:17 → CCU 04-14 10:40 → 2NO 04-15 11:01
PROVIDERS: ADMIT Student in an Organized Health Care Education/Training Program; ATTEND Internal Medicine
PROC: 02100Z9 Bypass Coronary Artery, One Artery from Left Internal Mammary, Open Approach (ICD-10-PCS; principal; 2020-04-14)
PROC: 4A023N7 Measurement of Cardiac Sampling and Pressure, Left Heart, Percutaneous Approach (ICD-10-PCS; 2020-04-14)
PROC: 0212093 Bypass Coronary Artery, Three Arteries from Coronary Artery with Autologous Venous Tissue, Open Approach (ICD-10-PCS; 2020-04-14)
PROC: 06BQ4ZZ Excision of Left Saphenous Vein, Percutaneous Endoscopic Approach (ICD-10-PCS; 2020-04-14)
PROC: B2111ZZ Fluoroscopy of Multiple Coronary Arteries using Low Osmolar Contrast (ICD-10-PCS; 2020-04-14)
PROC: B2151ZZ Fluoroscopy of Left Heart using Low Osmolar Contrast (ICD-10-PCS; 2020-04-14)
PROC: 5A1221Z Performance of Cardiac Output, Continuous (ICD-10-PCS; 2020-04-14)
PROC: 0JH606Z Insertion of Pacemaker, Dual Chamber into Chest Subcutaneous Tissue and Fascia, Open Approach (ICD-10-PCS; 2020-04-17)
PROC: 02H63JZ Insertion of Pacemaker Lead into Right Atrium, Percutaneous Approach (ICD-10-PCS; 2020-04-17)
PROC: 02HK3JZ Insertion of Pacemaker Lead into Right Ventricle, Percutaneous Approach (ICD-10-PCS; 2020-04-17)
DX: I21.4 Non-ST elevation (NSTEMI) myocardial infarction (principal); N17.9 Acute kidney failure, unspecified; E87.1 Hypo-osmolality and hyponatremia; Z20.822 Contact with and (suspected) exposure to COVID-19; I12.9 Hypertensive chronic kidney disease with stage 1 through stage 4 chronic kidney disease, or unspecified chronic kidney disease; E11.65 Type 2 diabetes mellitus with hyperglycemia; E11.22 Type 2 diabetes mellitus with diabetic chronic kidney disease; E78.5 Hyperlipidemia, unspecified; E03.9 Hypothyroidism, unspecified; F12.90 Cannabis use, unspecified, uncomplicated; I25.10 Atherosclerotic heart disease of native coronary artery without angina pectoris; I25.5 Ischemic cardiomyopathy; N18.30 Chronic kidney disease, stage 3 unspecified; I49.5 Sick sinus syndrome; E83.42 Hypomagnesemia; I48.0 Paroxysmal atrial fibrillation; E87.5 Hyperkalemia; D69.6 Thrombocytopenia, unspecified; Z79.890 Hormone replacement therapy; Z79.899 Other long term (current) drug therapy; Z79.4 Long term (current) use of insulin
CPT/HCPCS: 33208; 36415; 36416; 36430; 71045; 71046; 76942; 80048; 80053; 80061; 82553; 82805; 83036; 83735; 83880; 84443; 84484; 85025; 85347; 85610; 85730; 86850; 86900; 86901; 87635; 93005; 93010; 93306; 93458; 93798; 94002; 94640; 96374; 97139; 99152; 99153; C1785; C1898; G0378; J0171; J0690; J1100; J1200; J1580; J1644; J1650; J1815; J1940; J2001; J2150; J2250; J2270; J2405; J2440; J2704; J2720; J3010; J3370; J3475; J3480; J3490; J7070; J7620; P9045; Q9967; S0017; S0020; S0028; U0003

== ENCOUNTER 2020-04-21 11:54 | Inpatient (IN) | payer MEDICARE ==
[2020-04-21 12:54] LABS: #Eosinphils 0.2 thou/uL (0.0-0.7); #Lymphocytes 1.1 thou/uL (1.20-3.40); #Monocytes 0.7 thou/uL (0.11-0.59); #Neutrophils 5.3 thou/uL (1.40-6.50); %Basophils 0.5 % (0.0-1.0); %Eosinophils 2.1 % (0.0-10.0); %Lymphocytes 14.6 % (21.0-51.0); %Monocytes 9.9 % (0.0-10.0); Hemoglobin 9.8 g/dL (14.0-18.0); Mean Corpuscular HGB CONC 32.9 g/dL (32.0-36.0); Mean Corpuscular Hemoglobin 29.6 pg (27.0-31.0); Mean Corpuscular Volume 89.9 fL (78.0-98.0); Mean Platelet Volume 8.1 fL (7.4-10.4); Platelet Count 185 thou/uL (130-400); RBC Distribution Width 12.7 % (11.5-14.5); Red Blood Cell (RBC) Count 3.31 mill/uL (4.70-6.10); White Blood Cell (WBC) Count 7.3 thou/uL (4.8-10.8)
--- NOTE | 2020-04-21 13:11 | CT ---
Exam: CT angiogram of the chest HISTORY: Status post multiple bypass surgery, one week ago. Shortness of breath, recurrent. COMPARISON: None TECHNIQUE: CT angiogram of the chest is performed in the axial plane. Three-dimensional reformatted i mages are submitted for interpretation FINDINGS: Mediastinum: There are expected postoperative changes within the mediastinum. There is stranding of t he anterior mediastinum. There is subcutaneous emphysema involving the anterior chest wall. There are postoperative sternotomy changes. No mediastinal mass, lymphadenopathy, or significant mediastina l fluid. Trace amount of mediastinal fluid is presumed to be postoperative. HEART: Normal heart size. There is evidence of previous coronary surgery. Small amount of pericardial fluid is noted along the inferior aspect of the pericardium. Aorta: Limited evaluation by the lack of IV contrast. Scattered atherosclerotic disease Upper solid abdominal viscera: No abnormality enhancement. Trachea and central bronchi: Patent Pleural spaces: Small bilateral effusions. Lung parenchyma: Dependent atelectatic changes. Scarring and atelectasis in the lingula and left lowe r lobe. Pneumothorax: None Osseous structures: No lytic or blastic lesions Pulmonary arteries: Adequate contrast opacification pulmonary arterial system to the level of segment al arteries. No filling defect to suggest pulmonary embolism IMPRESSION: 1. No evidence of pulmonary artery embolism to the level of the segmental arteries 2. Bilateral pleural effusion with bibasilar consolidation likely resulting atelectasis. Superimposed pneumonia and/or aspiration cannot be excluded 3. Postoperative changes compatible with recent CABG.
[2020-04-21 13:18] LABS: ALT (SGPT) 17 U/L (8-55); AST (SGOT) 15 U/L (5-34); Albumin 3.6 g/dL (3.4-4.8); Alkaline Phosphatase 51 U/L (40-110); Anion Gap 12 mmol/L (10-20); BUN (Urea Nitrogen) 27 mg/dL (8.4-25.7); Bilirubin, Total 0.7 mg/dL (0.2-1.2); Calc. Creatinine Clearance 0 mL/min (70-130); Calcium 8.5 mg/dL (7.8-10.44); Carbon Dioxide 28 mmol/L (23-31); Chloride 101 mmol/L (98-107); Globulin 2.2 g/dL (2.4-3.5); Glucose 184 mg/dL (80-115); Potassium 4.4 mmol/L (3.5-5.1); Protein, Total 5.8 g/dL (5.8-8.1); Sodium 137 mmol/L (136-145)
--- NOTE | 2020-04-21 13:18 | RAD ---
PORTABLE CHEST: Date: 04/21/2020 HISTORY: Shortness of breath 1 week post bypass. FINDINGS: Heart size is enlarged. Postop sternotomy changes are seen. Pacemaker device is present. The lungs ar e clear of infiltrates. No signs of failure. IMPRESSION: Cardiomegaly. No acute findings. POS: TONY
[2020-04-21 13:33] LABS: PTT 30.2 sec (22.9-36.1)
[2020-04-21] MEDS ORDERED: Iopamidol-370 76% 500 ML 1 ML ONE (13:33)
[2020-04-21 13:34] LABS: INR-International Normal Ratio 1.1; Prothrombin Time 14.3 sec (12.0-14.7)
[2020-04-21] MEDS ORDERED: Aspirin Chewable 81 MG TAB ONE (13:37)
[2020-04-21] MEDS ORDERED: Furosemide 40 MG/4 ML VIAL ONE (13:37)
[2020-04-21 15:31] VITALS: BMI 28.6
[2020-04-21] MEDS ORDERED: Senokot S 8.6-50 MG TAB PO PRN (15:49)
[2020-04-21] MEDS ORDERED: Acetaminophen 325 MG TAB PO PRN (15:49)
[2020-04-21] MEDS ORDERED: HYDROcodone/Acetaminophen 5/325 mg Tablet PO PRN (15:51)
[2020-04-21] MEDS ORDERED: diphenhydrAMINE 50 MG CAP PO PRN (15:51)
[2020-04-21] MEDS ORDERED: Famotidine 20 MG TAB PO PRN (15:51)
[2020-04-21 16:27] LABS: Troponin I 0.093 ng/mL (< 0.028)
--- NOTE | 2020-04-21 17:36 | HP ---
Chief complaint: SOB HISTORY OF PRESENT ILLNESS: A 70-year-old male with recent 3-vessel CABG and pacemaker placement, chronic systolic heart failure, ejection fraction 35%, and type 2 diabetes mellitus, presenting today with shortness of breath, dyspnea on exertion as well as orthopnea. He was discharged home with amiodarone. His EF was 45% on the repeat echo prior to discharge and he did not require a LifeVest. He was also discharged with Keflex 500 mg every 6 hours. Initial evaluation showed troponin of 0.074. Chest x-ray with cardiomegaly and postop sternotomy changes, pacemaker, but lungs clear of infiltrate. CT chest angiogram without evidence of pulmonary artery embolism, but bilateral pleural effusion and bibasilar consolidation. Superimposed pneumonia or aspiration cannot be excluded. His BNP is 798, creatinine of 1.4, blood glucose 184. The patient will be admitted for his post CABG related CHF. The patient did have some productive cough, but no fever. He lives alone. He does not have any COVID exposure risk during this time. REVIEW OF SYSTEMS: A 13-point review of systems reviewed. The patient denies any headache, blurriness, tingling or numbness in the extremities. No nausea, vomiting, abdominal pain, constipation, diarrhea, hematuria, dysuria, or hematochezia. No polyuria or polydipsia. He does have rash in his left lower extremity and likely saphenous vein removal for CABG. The ecchymosis seems to be resolving per the patient. ALLERGIES: HE HAS NO KNOWN DRUG ALLERGY. PAST MEDICAL HISTORY: 1. Multivessel coronary artery disease, status post CABG roughly a week ago, paroxysmal atrial fib postop, ischemic cardiomyopathy with EF of 45%. 2. Hypertension. 3. Hyperlipidemia. 4. Hypothyroidism. PAST SURGICAL HISTORY: Status post CABG on April 14. SOCIAL HISTORY: The patient does not smoke or drink alcohol. FAMILY HISTORY: Significant for diabetes and mother had unknown cancer. HOME MEDICATIONS: 1. Lipitor 40 mg at bedtime. 2. Aspirin 81 mg daily. 3. Amiodarone 200 mg daily. 4. Coreg 6.25 mg twice a day. 5. Keflex 500 mg p.o. q.6 hours. 6. Plavix 75 mg daily. 7. Gabapentin 300 mg three times a day. 8. Pepcid 20 mg twice a day. 9. Jordan one tablet 5 mg every 6 hours as needed. 10. Lisinopril 2.5 mg daily. 11. Levothyroxine 175 mcg daily. 12. Metformin 1000 mg twice a day. 13. Benadryl 50 mg at bedtime p.r.n. PHYSICAL EXAMINATION: VITAL SIGNS: Temperature 98.2, pulse 68, saturating 100% with 2 L oxygen by nasal cannula. GENERAL: The patient is alert and oriented x3. He appears well. HEENT: Pupils are equal, round, and reactive to light. Anicteric. Mucous membranes moist. CARDIOVASCULAR: Regular rate and rhythm without murmurs, rubs, or gallops. LUNGS: Clear to auscultation bilaterally without wheezing, rales, or rhonchi. ABDOMEN: Soft, nontender, nondistended. Good bowel sounds, protuberant with body habitus. EXTREMITIES: He has left leg all the way from the ankle to the mid anterior of the upper thigh on the medial side, has significant ecchymosis, but it is not tender or painful with touch. He also has suture sites on the area that seems to be quite healing well. His CABG site in the chest area also seems to be healing well. I did not appreciate any pitting edema in his lower extremities. NEUROLOGIC: No focal deficits. PSYCHIATRIC: Appropriate mood and affect. LABORATORY DATA: Hemoglobin 9.8, platelets 185, WBC 7.3. INR is 1.1. Troponin 0.074. BNP 798. His creatinine is 1.43. Rest of the panel in the normal range. EKG showed atrial paced rhythm with left axis deviation, normal FL interval, normal QRS duration, nonspecific T-wave changes in the anterolateral leads. Chest x- ray without any acute infiltrate. CT angiogram showed bilateral pleural effusion and negative PE. IMPRESSION AND PLAN: This is a 70-year-old male with recent coronary artery bypass grafting and permanent pacemaker placement roughly a week ago, presenting with orthopnea and dyspnea on exertion. The patient does have ischemic cardiomyopathy with EF of 45%. His history and CT angiogram consistent with possible moderate congestive heart failure exacerbation. I will start him on gentle diuresis. Ischemic Cardiomyopathy Strict in and output and weight daily. He had an echo done on April 18 showing 45% EF. Chronic kidney disease. It appears that his creatinine is around 1.29 to 1.5 since the last admission. It did not change much, but be cautious with diuresis at this time. Abnormal troponin level of 0.07, probably with congestive heart failure/demand ischemia. I will trend the troponin. Deep venous thrombosis prophylaxis, heparin. Type 2 diabetes mellitus, continue with his metformin and sliding scale insulin. Cardiology consult placed. Job ID: [id number] MTDD
[2020-04-21] MEDS: metFORMIN 500 MG TAB PO SCH (17:55)
[2020-04-21] MEDS: Cephalexin 250 MG CAP PO SCH ×2 (17:56→23:41)
[2020-04-21] MEDS: Carvedilol 6.25 MG TAB PO SCH (17:56)
[2020-04-21] MEDS ORDERED: Furosemide 40 MG/4 ML VIAL SLOW IVP SCH (18:00)
[2020-04-21 19:05] LABS: Troponin I 0.082 ng/mL (< 0.028)
[2020-04-21] MEDS: Gabapentin 300 MG CAP PO SCH (20:08)
[2020-04-21] MEDS: Heparin 5,000 UNITS/ML VIAL SC SCH (20:08)
[2020-04-21] MEDS: Furosemide 40 MG/4 ML VIAL SLOW IVP SCH (20:08)
[2020-04-21] MEDS ORDERED: Atorvastatin Calcium 40 MG TAB PO SCH (21:00)
[2020-04-22 02:56] LABS: SARS-CoV-2 MS2 Positive; SARS-CoV-2 N Gene Negative; SARS-CoV-2 S Gene Negative; SARS-CoV-2 by NAA Not Detected (NotDetected); SARS-CoV-2 orf1ab Negative
[2020-04-22 04:59] LABS: #Eosinphils 0.3 thou/uL (0.0-0.7); #Lymphocytes 1.5 thou/uL (1.20-3.40); #Monocytes 0.9 thou/uL (0.11-0.59); #Neutrophils 4.8 thou/uL (1.40-6.50); %Basophils 0.1 % (0.0-1.0); %Eosinophils 4.3 % (0.0-10.0); %Lymphocytes 20.2 % (21.0-51.0); %Monocytes 11.6 % (0.0-10.0); %Neutrophils 63.8 % (42.0-75.0); Hemoglobin 9.1 g/dL (14.0-18.0); Mean Corpuscular HGB CONC 32.7 g/dL (32.0-36.0); Mean Corpuscular Hemoglobin 29.2 pg (27.0-31.0); Mean Corpuscular Volume 89.4 fL (78.0-98.0); Platelet Count 202 thou/uL (130-400); RBC Distribution Width 12.6 % (11.5-14.5); Red Blood Cell (RBC) Count 3.11 mill/uL (4.70-6.10); White Blood Cell (WBC) Count 7.5 thou/uL (4.8-10.8)
[2020-04-22] MEDS: Cephalexin 250 MG CAP PO SCH ×2 (05:04→11:32)
[2020-04-22 05:18] LABS: Anion Gap 16 mmol/L (10-20); BUN (Urea Nitrogen) 28 mg/dL (8.4-25.7); Calc. Creatinine Clearance 50 mL/min (70-130); Calcium 8.4 mg/dL (7.8-10.44); Carbon Dioxide 27 mmol/L (23-31); Chloride 98 mmol/L (98-107); Glucose 135 mg/dL (80-115); Potassium 3.9 mmol/L (3.5-5.1); Sodium 137 mmol/L (136-145)
[2020-04-22] MEDS ORDERED: Levothyroxine 175 MCG TAB PO SCH (06:00)
[2020-04-22] MEDS: metFORMIN 500 MG TAB PO SCH (07:56)
[2020-04-22] MEDS: Carvedilol 6.25 MG TAB PO SCH (07:56)
[2020-04-22] MEDS: Gabapentin 300 MG CAP PO SCH ×2 (07:56→15:51)
[2020-04-22] MEDS: Heparin 5,000 UNITS/ML VIAL SC SCH (07:57)
[2020-04-22] MEDS: Furosemide 40 MG/4 ML VIAL SLOW IVP SCH (07:57)
[2020-04-22] MEDS ORDERED: Lisinopril 2.5 MG TAB PO SCH (09:00)
[2020-04-22] MEDS ORDERED: Clopidogrel Bisulfate 75 MG TAB PO SCH (09:00)
[2020-04-22] MEDS ORDERED: Amiodarone 200 MG TAB PO SCH (09:00)
[2020-04-22] MEDS ORDERED: Aspirin Chewable 81 MG TAB PO SCH (09:00)
[2020-04-22] MEDS ORDERED: Insulin Regular 300 UNITS/3 ML VIAL SC PRN (09:15)
[2020-04-22] MEDS ORDERED: Dextrose 5% in Water 1,000 ML IV PRN (09:15)
[2020-04-22] MEDS ORDERED: Dextrose 50% Abboject 50 ML SYRINGE IVP PRN (09:15)
--- NOTE | 2020-04-22 10:28 | PRG ---
DATE OF SERVICE: 04/22/2020 SUBJECTIVE: Mr. Olmstead states he feels very well now. He has put a lot of urine. No chest pain or pressure. There is a full urinal near his bedside. I do not think that output has been accurately recorded diuresis. OBJECTIVE: VITAL SIGNS: Blood pressure is 125/70, pulse 70. LUNGS: Clear. CARDIAC: Normal S1, normal S2. ABDOMEN: Soft, nontender. ASSESSMENT: 1. Congestive heart failure, systolic, acute on chronic, improved. 2. Renal function somewhat worse with diuresis. PLAN: 1. Reduce furosemide to 40 mg once a day. 2. Amiodarone 400 mg a day. 3. May be able to go home later today. He wants to go home. Job ID: [id number]
[2020-04-22 11:42] VITALS: TEMP 98
[2020-04-22] MEDS ORDERED: Potassium Chloride 20 MEQ TAB PO SCH (12:00)
--- NOTE | 2020-04-22 15:22 | PDOC.DS.DS ---
Provider - Provider Date of Admission: 04/21/20 15:25 Admitting Provider: Art Valverde MD Primary Care Physician: Unknown Course - Hospital Course Hospital Course: 70-year-old male with a recent CABG and pacemaker placement presented with acute on chronic systolic heart failure exacerbation. Please see my H&P for more details he did overnight IV diuresis. A. His creatinine slightly jumped up. He was quite anxious to go home. He is evaluated by Dr. Jones and recommended that patient can go home with amiodarone 400 mg daily and Lasix 40 mg daily. Since his creatinine is 1.73 I did not send him with the potassium supplement but a low-dose Lasix as above. 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 Discharge time over 30 minutes. - Labs Lab Results: 04/22/20 04:02 04/22/20 04:02 Abnormal Lab Results - Last 48 hrs 04/21/20 12:35: BUN 27 H, Creatinine 1.43 H, Globulin 2.2 L 04/21/20 12:35: Troponin I 0.074 H 04/21/20 12:35: B-Natriuretic Peptide 798.2 H 04/21/20 12:35: RBC 3.31 L, Hgb 9.8 L, Hct 29.7 L, Lymphocytes % 14.6 L, Lymphocytes # 1.1 L, Monocytes # 0.7 H 04/21/20 15:54: Troponin I 0.093 H 04/21/20 18:28: Troponin I 0.082 H 04/22/20 04:02: BUN 28 H, Creatinine 1.73 H 04/22/20 04:02: RBC 3.11 L, Hgb 9.1 L, Hct 27.8 L, Lymphocytes % 20.2 L, Monocytes % 11.6 H, Monocytes # 0.9 H - Physical Exam Vitals: Vital Signs (12 hours) Temp Pulse Resp BP Pulse Ox 04/22/20 11:42 98.0 F 65 16 119/64 98 04/22/20 07:24 97.8 F 67 18 125/70 99 04/22/20 03:57 97.8 F 61 18 96/52 L 99 Weight Weight 190 lb 1.6 oz Physical Exam: The patient was seen and examined on the day of discharge. That he is much better and improved with IV diuresis and he is quite anxious to go home. Plan - Discharge Medications Prescriptions: Amiodarone [Cordarone] 400 mg PO DAILY 30 Days #30 tab Furosemide [Lasix] 40 mg PO DAILY 30 Days #30 tablet Potassium Chloride 10 meq PO DAILY 30 Days #30 tab Home Medications: Medication Instructions Recorded Confirmed Type Famotidine [Pepcid] 20 mg PO BID PRN 04/13/20 04/21/20 History Gabapentin 300 mg PO TID 04/13/20 04/21/20 History Levothyroxine Sodium 175 mcg PO QAM 04/13/20 04/21/20 History [Levothyroxine] diphenhydrAMINE [Benadryl] 50 mg PO HS PRN 04/13/20 04/21/20 History metFORMIN [Glucophage] 1,000 mg PO BID-WM 04/13/20 04/21/20 History Aspirin Chewable [Aspirin Chewable 81 mg PO DAILY #120 tab 04/18/20 04/21/20 Rx Tablet] Atorvastatin Calcium [Lipitor] 40 mg PO HS #90 tab 04/18/20 04/21/20 Rx Clopidogrel Bisulfate [Plavix] 75 mg PO DAILY #90 tab 04/18/20 04/21/20 Rx HYDROcodone Bit/APAP 5/325 [Blauvelt] 2 tab PO Q4H PRN #40 tab 04/18/20 04/21/20 Rx Carvedilol [Coreg] 6.25 mg PO BID-WM #60 tab 04/19/20 04/21/20 Rx Cephalexin [Keflex] 500 mg PO Q6H #24 cap 04/19/20 04/21/20 Rx HYDROcodone/Acetaminophen [Blauvelt 1 each PO Q6HR PRN #10 tablet 04/19/20 04/21/20 Rx 5-325 Tablet] Lisinopril [Zestril] 2.5 mg PO DAILY #30 tab 04/19/20 04/21/20 Rx Amiodarone [Cordarone] 400 mg PO DAILY 30 Days #30 tab 04/22/20 Rx Furosemide [Lasix] 40 mg PO DAILY 30 Days #30 tablet 04/22/20 Rx Potassium Chloride 10 meq PO DAILY 30 Days #30 tab 04/22/20 Rx Allergies: No Known Drug Allergies Allergy (Verified 04/13/20 08:46) - Discharge Instructions Discharge Instructions:: PCP in 1 week follow with your cardiolgist in 1 to 2 weeks You need BMP lab draw in 1 week at your PCP office to check Potassium and creatinine as you started on diuretics/lasix Activity:: Activity as Tolerated - Follow up Plan Referrals: Michaela Hassan [facility]] - 04/29/20 1:15 pm (Please follow-up on 04/29/20 1:15 pm.) Marily Jones MD [Active] - 7 Days (Please follow-up within 1-2 weeks.) Disposition: HOME Quality - Care Measures CORE MEASURES:: N/A
[2020-04-22 15:51] VITALS: BP 121/58
[2020-04-23] MEDS ORDERED: Furosemide 40 MG TAB PO SCH (07:30)
[2020-04-23] MEDS ORDERED: Amiodarone 200 MG TAB PO SCH (09:00)
--- NOTE | 2020-04-24 01:04 | PQF ---
Dear : Art Valverde Date 04/24/20 Please exercise your independent, professional judgment in responding to the clarification form. Clinical indicators are provided on the bottom of this form for your review Can you please further clarify the diagnosis of the patient? Please check appropriate box(es): AMI TYPE: [x ] Type 2 MD due to demand ischemia [ ] Demand ischemia with out MD [ ] Other diagnosis please specify [ ] Unable to determine Physician Signature: Date/Time: For continuity of documentation, please document condition throughout progress notes and discharge summary. Thank You. To be completed by CDI/Coding staff for physician review: Present Clinical Indicators - Signs / Symptoms / Labs Results and Location in Medical Record [ x ] Abnormal troponin level of 0.07, probably with congestive hearth failure H and P pg.3 [ x ] Demand ischemia H and P pg.3 [ x ] Nonspecific T wave changes in the anterior lateral leads ED Provider pg.3 [ x ] Acute on chronic systolic CHF PN pg.1 [ x ] Troponin I: 0.074H, 0.093H, 0.082H Laboratory Present Risk Factors Results and Location in Medical Record [ x ] CAD H and P pg.1 [ x ] HTN H and P pg.1 [ x ] HLD H and P pg.1 [ x ] Afib H and P pg.1 [ x ] Ischemic cardiomyopathy H and P pg.1 Present Treatments Results and Location in Medical Record [ x ] EKG ED Provider pg.3 [ x ] Troponin monitoring Laboratory [ x ] Aspirin 81mg PO MAR [ x ] IV Fluids MAR [ x ] Furosimide 40mg IV MAR [ x ] Carvedilol 6.25mg PO MAR CDS/Remote Pilot Operator Signature: Hao Mota Phone #: ext [phone] Date 04/24/20 This is a permanent part of the Medical Record [facility]
--- NOTE | 2020-04-26 10:08 | EKG ---
Test Reason : SOB Blood Pressure : / mmHG Vent. Rate : 062 BPM Atrial Rate : 062 BPM P-R Int : 192 ms QRS Dur : 080 ms QT Int : 452 ms P-R-T Axes : 016 -45 -48 degrees QTc Int : 458 ms Atrial-paced rhythm Left axis deviation Possible Lateral infarct , age undetermined Inferior infarct , age undetermined Abnormal ECG Confirmed by ELOISA HARO, MORAIMA Jones ([id number]), deputy editor in chief ARABELLA DIALLO ([id number]) on 04/26/2020 10:07:54 AM Referred By: ELOISA Confirmed By:MORAIMA AMIN MD
== END 2020-04-22 15:48 | disposition home or self-care (01) | DRG 280 ==
LOC: ERS 11:54 → 2NO 15:25
PROVIDERS: ADMIT Internal Medicine; ATTEND Internal Medicine
DX: I13.0 Hypertensive heart and chronic kidney disease with heart failure and stage 1 through stage 4 chronic kidney disease, or unspecified chronic kidney disease (principal); I50.23 Acute on chronic systolic (congestive) heart failure; I21.A1 Myocardial infarction type 2; N17.9 Acute kidney failure, unspecified; Z20.822 Contact with and (suspected) exposure to COVID-19; E78.00 Pure hypercholesterolemia, unspecified; F12.10 Cannabis abuse, uncomplicated; E78.5 Hyperlipidemia, unspecified; E03.9 Hypothyroidism, unspecified; I25.5 Ischemic cardiomyopathy; E11.22 Type 2 diabetes mellitus with diabetic chronic kidney disease; I48.0 Paroxysmal atrial fibrillation; Z95.1 Presence of aortocoronary bypass graft; Z79.84 Long term (current) use of oral hypoglycemic drugs; Z79.890 Hormone replacement therapy; Z79.899 Other long term (current) drug therapy; Z79.01 Long term (current) use of anticoagulants
CPT/HCPCS: 36415; 36416; 71045; 71275; 80048; 80053; 82553; 83605; 83735; 83880; 84443; 84484; 85025; 85610; 85730; 87635; 93005; 96374; J1644; J1940; Q9967; U0003

== ENCOUNTER 2020-05-05 16:44 | Observation (INO) | payer MEDICARE ==
[2020-05-05 17:38] LABS: #Eosinphils 0.1 thou/uL (0.0-0.7); #Lymphocytes 0.8 thou/uL (1.20-3.40); #Monocytes 0.5 thou/uL (0.11-0.59); %Basophils 0.4 % (0.0-1.0); %Eosinophils 1.9 % (0.0-10.0); %Lymphocytes 10.1 % (21.0-51.0); %Monocytes 6.5 % (0.0-10.0); %Neutrophils 81.1 % (42.0-75.0); Hemoglobin 11.1 g/dL (14.0-18.0); Mean Corpuscular Hemoglobin 29.3 pg (27.0-31.0); Mean Corpuscular Volume 86.4 fL (78.0-98.0); Platelet Count 270 thou/uL (130-400); RBC Distribution Width 12.8 % (11.5-14.5); White Blood Cell (WBC) Count 7.4 thou/uL (4.8-10.8)
--- NOTE | 2020-05-05 17:50 | RAD ---
Exam: Chest one view HISTORY:Epigastric abdominal pain. Comparison: 04/21/2020 FINDINGS: Cardiac silhouette:Upper normal cardiac silhouette. Stable left-sided transvenous pacemaker and rendon otomy wires. Aorta: Unremarkable Pulmonary vessels: Atherosclerotic Costophrenic angles: Clear LUNGS: No masses or consolidation. Pneumothorax: None Osseous abnormalities: None IMPRESSION: Atherosclerosis. No acute cardiopulmonary process.
[2020-05-05 17:51] LABS: Bilirubin Negative (Negative); Blood, Urine Negative (Negative); Clarity Clear (Clear); Glucose, Urine (Dipstick) 30 mg/dL (Negative); Ketone, Urine Negative (Negative); Leukocyte Negative Leu/uL (Negative); Nitrite Negative (Negative); Protein, Urine (Dipstick) Negative (Neg-Trace); Specific Gravity, Urine 1.011 (1.002-1.036); Urobilinogen Normal mg/dL (Less than 2)
[2020-05-05 18:10] LABS: ALT (SGPT) 16 U/L (8-55); AST (SGOT) 14 U/L (5-34); Alkaline Phosphatase 77 U/L (40-110); Anion Gap 14 mmol/L (10-20); BUN (Urea Nitrogen) 22 mg/dL (8.4-25.7); Bilirubin, Total 0.5 mg/dL (0.2-1.2); Calc. Creatinine Clearance 0 mL/min (70-130); Calcium 8.4 mg/dL (7.8-10.44); Carbon Dioxide 24 mmol/L (23-31); Chloride 98 mmol/L (98-107); Globulin 2.7 g/dL (2.4-3.5); Glucose 213 mg/dL (80-115); Lipase 76 U/L (8-78); Potassium 5.4 mmol/L (3.5-5.1); Protein, Total 6.7 g/dL (5.8-8.1); Sodium 131 mmol/L (136-145)
[2020-05-05] MEDS ORDERED: Sodium Chloride 0.9% 1,000 ML IV SCH (21:45)
[2020-05-05 22:30] VITALS: BMI 27.3
[2020-05-06] MEDS ORDERED: Dextrose 5% in Water 1,000 ML IV PRN (02:23)
[2020-05-06] MEDS ORDERED: Dextrose 50% Abboject 50 ML SYRINGE SLOW IVP PRN (02:23)
[2020-05-06] MEDS ORDERED: HumaLOG 300 UNITS/3 ML VIAL SC PRN (02:23)
[2020-05-06] MEDS ORDERED: hydrALAZINE 20 MG/ML VIAL SLOW IVP PRN (02:47)
[2020-05-06] MEDS ORDERED: Guaifenesin DM 100-10/5 ML UDCUP PO PRN (02:47)
[2020-05-06] MEDS ORDERED: HYDROcodone/Acetaminophen 5/325 mg Tablet PO PRN ×3 (02:47→03:01)
[2020-05-06] MEDS ORDERED: Acetaminophen 325 MG TAB PO PRN (02:47)
[2020-05-06] MEDS ORDERED: cloNIDine 0.1 MG TAB PO PRN (02:47)
[2020-05-06] MEDS ORDERED: Ondansetron PF 4 MG/2 ML Vial IVP PRN (02:47)
[2020-05-06] MEDS ORDERED: Labetalol HCl 100 MG/20 ML VIAL SLOW IVP PRN (02:47)
[2020-05-06] MEDS ORDERED: Promethazine HCl 12.5 MG in Sodium Chloride 0.9% 50 ML IVPB PRN (02:47)
--- NOTE | 2020-05-06 02:50 | PDOC.HHP ---
Hospitalist HPI - History of Present Illness Abdominal pain History of Present Illness: Patient is a 70 year old male with PMH CABG this month who presents to ED for abdominal pain in the epigastrium which began yesterday then nausea overnight. Denies vomiting. Normal bowel movements. Denies fever. Denies chest pain. In ED, labs concerning for Na 131, K 5.4, glucose 213. Hospitalist ROS - Review of Systems Constitutional: denies: fever, chills, sweats, weakness, malaise, other Eyes: denies: pain, vision change, conjunctivae inflammation, eyelid inflammation, redness, other ENT: denies: ear pain, ear discharge, nose pain, nose discharge, nose congestion, mouth pain, mouth swelling, throat pain, throat swelling, other Respiratory: denies: cough, dry, shortness of breath, hemoptysis, SOB with excertion, pleuritic pain, sputum, wheezing, other Cardiovascular: denies: chest pain, palpitations, orthopnea, paroxysmal noc. dyspnea, edema, light headedness, other Gastrointestinal: reports: nausea, vomiting, abdominal pain. denies: diarrhea, constipation, melena, hematochezia, other Musculoskeletal: denies: neck pain, shoulder pain, arm pain, back pain, hand pain, leg pain, foot pain, other Skin: denies: rash, lesions, nancy, bruising, other Neurological: denies: weakness, numbness, incoordination, change in speech, confusion, seizures, other All other systems reviewed; all pertinent +/- noted in HPI/Subj - Medication Medications: Active Medications Generic Name Dose Route Start Last Admin Trade Name Fernandezq PRN Reason Stop Dose Admin Sodium Chloride 1,000 mls @ 75 mls/hr 05/05/20 21:45 05/05/20 22:21 Normal Saline 0.9% IV 05/06/20 06:45 1,000 mls .[id number] MORE Administration metFORMIN tablet : Strength - 500 mg : ORAL Patient Dose: 1000 mg Oral 2 times a day. gabapentin capsule : Strength - 300 mg : ORAL Patient Dose: 300 mg Oral 3 times a day. lisinopril tablet : Strength - 10 mg : ORAL Patient Dose: 20 mg Oral once a day. amLODIPine tablet : Strength - 10 mg : ORAL Patient Dose: 5 mg Oral 2 times a day. famotidine oral tablet : Strength - 10 mg : ORAL Patient Dose: 20 mg Oral once a day. metoprolol tartrate oral tablet : Strength - 25 mg : ORAL Patient Dose: 1 tab(s) Oral 2 times a day. levothyroxine oral tablet : Strength - 175 mcg : ORAL Patient Dose: 1 tab(s) Oral once a day. Eliquis TABLET : Strength - 5 mg : ORAL Patient Dose: Unknown. Hospitalist History - Past Medical History Other Medical History: HTN, DM, CABG, CAD, HLD - Past Surgical History Other Surgical History: right 4th digit. cabg x4 04/2020.. PACEMAKER 2020. - Family History Family History: reports: no pertinent history - Social History Smoking Status: Never smoker Alcohol: reports: None Drugs: reports: marijuana - Exam General Appearance: NAD, awake alert Eye: PERRL, anicteric sclera ENT: normocephalic atraumatic, no oropharyngeal lesions, moist mucosa Neck: supple, symmetric, no JVD, no thyromegaly, no lymphadenopathy, no carotid bruit Heart: RRR, no murmur, no gallops, no rubs, normal peripheral pulses Respiratory: CTAB, no wheezes, no rales, no ronchi, normal chest expansion, no tachypnea, normal percussion Gastrointestinal: soft, non-tender, non-distended, normal bowel sounds, no palpable masses, no hepatomegaly, no splenomegaly, no bruit Extremities: no cyanosis, no clubbing, no edema Skin: normal turgor, no lesions, no rashes Neurological: cranial nerve grossly intact, normal sensation to touch, no weakness, no focal deficits, no new deficit Musculoskeletal: normal tone, normal strength, no muscle wasting Psychiatric: normal affect, normal behavior, A&O x 3 Hospitalist Results - Labs Result Diagrams: 05/05/20 17:20 05/05/20 17:20 Lab results: WBC 7.4 thou/uL (4.8-10.8) 05/05/20 17:20 Hgb 11.1 g/dL (14.0-18.0) L 05/05/20 17:20 Hct 32.8 % (42.0-52.0) L 05/05/20 17:20 MCV 86.4 fL (78.0-98.0) 05/05/20 17:20 Plt Count 270 thou/uL (130-400) 05/05/20 17:20 Neutrophils % 81.1 % (42.0-75.0) H 05/05/20 17:20 Sodium 131 mmol/L (136-145) L 05/05/20 17:20 Potassium 5.4 mmol/L (3.5-5.1) H 05/05/20 17:20 Chloride 98 mmol/L (98-107) 05/05/20 17:20 Carbon Dioxide 24 mmol/L (23-31) 05/05/20 17:20 BUN 22 mg/dL (8.4-25.7) 05/05/20 17:20 Creatinine 1.50 mg/dL (0.7-1.3) H 05/05/20 17:20 Glucose 213 mg/dL (80-115) H 05/05/20 17:20 Calcium 8.4 mg/dL (7.8-10.44) 05/05/20 17:20 Total Bilirubin 0.5 mg/dL (0.2-1.2) 05/05/20 17:20 AST 14 U/L (5-34) 05/05/20 17:20 ALT 16 U/L (8-55) 05/05/20 17:20 Alkaline Phosphatase 77 U/L (40-110) 05/05/20 17:20 Troponin I 0.027 ng/mL (< 0.028) 05/05/20 17:19 B-Natriuretic Peptide 312.7 pg/mL (0-100) H 05/05/20 17:20 Serum Total Protein 6.7 g/dL (5.8-8.1) 05/05/20 17:20 Albumin 4.0 g/dL (3.4-4.8) 05/05/20 17:20 Lipase 76 U/L (8-78) 05/05/20 17:20 Urine Ketones Negative mg/dL (Negative) 05/05/20 17:05 Urine Blood Negative (Negative) 05/05/20 17:05 Urine Nitrite Negative (Negative) 05/05/20 17:05 Ur Leukocyte Esterase Negative Nieves/uL (Negative) 05/05/20 17:05 Additional comment: VITAL SIGNS TueMay 05, 2020 20:10 ANDREA Guillen [place] BP: 143/91 Pulse: 75 Resp: 16 Temp: 97.7 (Oral) Pain: 0 O2 sat: 96 on (Room Air) Time: 05/05/2020 20:10. XR Chest 1 View Portable Observe DT: TueMay 05, 2020 17:22 CXRP Exam: Chest one view HISTORY:Epigastric abdominal pain. Comparison: 04/21/2020 FINDINGS: Cardiac silhouette:Upper normal cardiac silhouette. Stable left-sided transvenous pacemaker and rendon otomy wires. Aorta: Unremarkable Pulmonary vessels: Atherosclerotic Costophrenic angles: Clear LUNGS: No masses or consolidation. Pneumothorax: None Osseous abnormalities: None IMPRESSION: Atherosclerosis. No acute cardiopulmonary process. - EKG Interpretation EK LEAD EKG INTERPRETATION 12 lead EKG interpreted by Emergency Department Physician at time of study Normal sinus rhythm with a rate of 63. Left axis deviation. Normal intervals. T wave inversions in lead V3, V4, V5, V6 concerning for anterior lateral ischemia. independantly reviewed by me and agree with ED interpretation Hospitalist H&P A/P - Plan Plan: Patient is a 70 year old male with PMH CABG this month who presents to ED for abdominal pain in the epigastrium which began yesterday then nausea overnight. Denies vomiting. Normal bowel movements. Denies fever. Denies chest pain. # epigastric pain # hypokalemia # hyponatremia # REGULO # CAD, mrecent CABG # HLD # HTN DM epigastric pain rating to the back. Stable vital signs no pulsatile mass no pain out of proportion. EKG shows inverted T waves in the anterior lateral leads concerning for ischemia. This could be a normal postoperative change as well. Patient's laboratory studies demonstrate hyponatremia hyperkalemia with a normal QRS width on his EKG and acute kidney injury concerning for dehydration. Given IVF in ED. - admit to floor w/ senior climate advisor - pain improving, start PPI - consult cardiology given EKG findings - trend BMP - SSI - continue home beta sahley, lipitor, aspirin, amiodatone, plavix, - hold lisinopril, metformin # DVT/GI ppx full code
[2020-05-06] MEDS ORDERED: Electrolyte Replacement Protocol 1 EACH FS PRN (03:00)
[2020-05-06] MEDS ORDERED: diphenhydrAMINE 50 MG CAP PO PRN (03:01)
[2020-05-06] MEDS ORDERED: Pantoprazole 40 MG VIAL IVP SCH (03:15)
[2020-05-06 05:06] LABS: #Basophils 0.1 thou/uL (0.0-0.2); #Eosinphils 0.3 thou/uL (0.0-0.7); #Lymphocytes 1.2 thou/uL (1.20-3.40); #Monocytes 0.6 thou/uL (0.11-0.59); #Neutrophils 4.1 thou/uL (1.40-6.50); %Basophils 1.4 % (0.0-1.0); %Eosinophils 4.4 % (0.0-10.0); %Lymphocytes 19.4 % (21.0-51.0); %Monocytes 10.1 % (0.0-10.0); %Neutrophils 64.6 % (42.0-75.0); Hemoglobin 9.8 g/dL (14.0-18.0); Mean Corpuscular HGB CONC 33.8 g/dL (32.0-36.0); Mean Corpuscular Hemoglobin 29.4 pg (27.0-31.0); Mean Corpuscular Volume 87.1 fL (78.0-98.0); Mean Platelet Volume 7.2 fL (7.4-10.4); Platelet Count 247 thou/uL (130-400); RBC Distribution Width 12.8 % (11.5-14.5); Red Blood Cell (RBC) Count 3.33 mill/uL (4.70-6.10); White Blood Cell (WBC) Count 6.3 thou/uL (4.8-10.8)
[2020-05-06 05:34] LABS: Anion Gap 14 mmol/L (10-20); BUN (Urea Nitrogen) 20 mg/dL (8.4-25.7); Calc. Creatinine Clearance 60 mL/min (70-130); Calcium 8.1 mg/dL (7.8-10.44); Carbon Dioxide 23 mmol/L (23-31); Chloride 99 mmol/L (98-107); Glucose 322 mg/dL (80-115); Magnesium 1.4 mg/dL (1.6-2.6); Potassium 4.4 mmol/L (3.5-5.1); Sodium 132 mmol/L (136-145)
[2020-05-06] MEDS ORDERED: Levothyroxine 175 MCG TAB PO SCH (06:00)
[2020-05-06] MEDS ORDERED: Magnesium Sulfate 4 GM in Sodium Chloride 0.9% 250 ML 250 ML IVPB SCH (06:30)
[2020-05-06 07:20] LABS: SARS-CoV-2 PCR by NAA Not Detected (NotDetected)
[2020-05-06] MEDS: Gabapentin 300 MG CAP PO SCH ×2 (08:39→15:42)
[2020-05-06] MEDS ORDERED: Heparin 5,000 UNITS/ML VIAL SC SCH (09:00)
[2020-05-06] MEDS ORDERED: Clopidogrel Bisulfate 75 MG TAB PO SCH (09:00)
[2020-05-06] MEDS ORDERED: Aspirin Chewable 81 MG TAB PO SCH (09:00)
[2020-05-06] MEDS ORDERED: Famotidine 20 MG TAB PO SCH (09:00)
[2020-05-06] MEDS ORDERED: Amiodarone 200 MG TAB PO SCH (09:00)
[2020-05-06] MEDS ORDERED: Furosemide 40 MG TAB PO SCH (09:00)
--- NOTE | 2020-05-06 10:15 | CON ---
DATE OF CONSULTATION: 05/06/2020 REASON FOR CONSULTATION: Epigastric pain, abnormal EKG, recent bypass surgery. HISTORY OF PRESENT ILLNESS: Mr. Olmstead is a 70-year-old gentleman, who recently was admitted and found to have a severe left main coronary artery stenosis with right coronary artery stenosis and 3-vessel coronary artery disease. He also was found to have had a [id number] infarction. He underwent successful bypass surgery as outlined in the chart. He initially had markedly depressed left ventricular function, but later improved. Had to be readmitted briefly with congestive heart failure, but this has done well until he started having severe epigastric burning. Came to the emergency room, found to have some T-wave inversions in the anterior chest leads and was evaluated. He had no chest pain or pressure. The patient is resting comfortably now. MEDICATIONS: See nurses' note. It does include amiodarone he was down to 200 mg a day. He is also seen in the office recently, given samples of Eliquis to take just for a couple of weeks until workup. He is not having recurrent atrial fibrillation. OTHER MEDICINES: He is taking gabapentin, aspirin, Plavix. He was actually taken off Plavix when he was placed on Eliquis and levothyroxine, he has been given pantoprazole here. ALLERGIES: NONE KNOWN. SOCIAL HISTORY: No alcohol or tobacco. REVIEW OF SYSTEMS: CONSTITUTIONAL: Positive for nausea. VISION: No changes. HEARING: No changes. PULMONARY: No cough or wheezing. GASTROINTESTINAL: No nausea, vomiting, or diarrhea. SKIN: No rashes. NEUROLOGIC: No unilateral weakness or numbness. PSYCHIATRIC: No unusual depression or anxiety. PHYSICAL EXAMINATION: GENERAL: This is a pleasant gentleman, resting comfortably, in no distress. VITAL SIGNS: Blood pressure 150/80, pulse 70. LUNGS: Clear. CARDIAC: Normal S1, normal S2. ABDOMEN: Soft, nontender. EXTREMITIES: Warm, dry. No clubbing or cyanosis. No edema. LABORATORY DATA: EKG, sinus rhythm with really some nonspecific T-wave changes anteriorly and inferiorly. Troponin levels were in the negative range, 0.027. ASSESSMENT: 1. Previous bypass surgery. 2. Epigastric pain, suspect this is probably related to gastritis or other gastrointestinal findings. 3. Moderately depressed left ventricular function. 4. Stage 2 to 3 renal failure, creatinine is 1.4. PLAN: 1. Add low-dose beta ashley. 2. Ultrasound of the abdomen. 3. Agree with proton pump inhibitors. 4. Really, do not need any further evaluation from cardiac standpoint at this point. 5. We will hold amiodarone for now in case that is upsetting his stomach and low-dose beta blockers, possibly home later today. Job ID: [id number]
--- NOTE | 2020-05-06 10:24 | ULT ---
Abdominal ultrasound: 05/06/2020 COMPARISON: None HISTORY: Epigastric pain TECHNIQUE: Multiplanar grayscale sonographic imaging of the abdomen provided. FINDINGS: The imaged pancreas is grossly unremarkable. The body and the tail of the pancreas are obsc ured by bowel gas. The hepatic parenchyma is heterogeneous and echogenic, which may signify a degree of steatosis. No di screte focal liver lesion is apparent. No gallbladder wall thickening or pericholecystic fluid. No gallstones are noted. The common bile duct measures 4 mm, within normal limits. The right kidney measures 9.3 cm in craniocaudal dimension and demonstrates no evidence for stone, hy dronephrosis, or mass. The left kidney measures 11 cm in craniocaudal dimension and demonstrates no stone, hydronephrosis, o r mass. The spleen measures up to 9.8 cm, within normal limits. IMPRESSION: No acute findings.
[2020-05-06 15:40] VITALS: BP 121/72; TEMP 97.6
[2020-05-06] MEDS ORDERED: Carvedilol 3.125 MG TAB PO SCH (17:00)
[2020-05-06] MEDS ORDERED: Atorvastatin Calcium 40 MG TAB PO SCH (21:00)
[2020-05-07] MEDS ORDERED: Furosemide 20 MG TAB PO SCH (09:00)
--- NOTE | 2020-05-08 12:14 | PDOC.DS.DS ---
Provider Date of Admission: 05/05/20 19:18 Date of Discharge: 05/06/20 Admitting Provider: Adam Cruz MD Consultations: Cardiology Primary Care Physician: MICHAEL Cha Course Hospital Course: Patient is a 62-year-old male with known coronary artery disease. Patient had previously been admitted with three-vessel coronary disease and underwent bypass surgery. He had subsequent left ventricular depression and had a readmission briefly for decompensated heart failure. Subsequently he did well but on this occasion developed some epigastric abdominal pain. He presented to the emergency department had some nonspecific T wave inversions in the anterior leads. Patient was placed in observation. He had negative troponins and no findings on telemetry. He was seen by cardiology who briefly held his amiodarone for concern that it could be causing some GI distress. Patient s ymptoms completely resolved and he was eager to go home. Cardiology felt that that was appropriate and no further work-up was indicated. Patient was subsequently discharged in stable condition. Resuscitation Status: 05/06/20 02:47 Resuscitation Status Routine Resuscitation Status: FULL: Full Resuscitation Lab Results: 05/06/20 04:25 05/06/20 04:25 Vitals: Weight Weight 185 lb 6 oz Physical Exam: The patient was seen and examined on the day of discharge. General Appearance: NAD, awake alert Neck: supple, symmetric, no JVD Respiratory: CTAB, no wheezes, no rales, no ronchi, normal chest expansion, no tachypnea, normal percussion Cardiovascular: RRR, no murmur, no gallops, no rubs, normal peripheral pulses Gastrointestinal: soft, non-tender, non-distended, normal bowel sounds, no palpable masses Extremities: no cyanosis, no clubbing, no edema Skin: normal turgor, no lesions, no rashes Musculoskeletal: normal tone, normal strength, no muscle wasting PSYCH: normal affect, normal behavior, A&O x 3 Problem (1) Epigastric abdominal pain Code(s): R10.13 - EPIGASTRIC PAIN Status: Acute (2) Coronary artery disease Code(s): I25.10 - ATHSCL HEART DISEASE OF [place] CORONARY ARTERY W/O ANG PCTRS Status: Acute (3) Status post coronary artery bypass graft Code(s): Z95.1 - PRESENCE OF AORTOCORONARY BYPASS GRAFT Status: Acute (4) Abnormal EKG Code(s): R94.31 - ABNORMAL ELECTROCARDIOGRAM [ECG] [EKG] Status: Acute Plan Prescriptions: Pantoprazole [Protonix] 40 mg PO DAILY #30 tab Home Medications: Medication Instructions Recorded Confirmed Type Famotidine [Pepcid] 20 mg PO BID PRN 04/13/20 05/05/20 History Gabapentin 300 mg PO TID 04/13/20 05/05/20 History Levothyroxine Sodium 175 mcg PO QAM 04/13/20 05/05/20 History [Levothyroxine] diphenhydrAMINE [Benadryl] 50 mg PO HS PRN 04/13/20 05/05/20 History metFORMIN [Glucophage] 1,000 mg PO BID-WM 04/13/20 05/05/20 History Aspirin Chewable [Aspirin Chewable 81 mg PO DAILY #120 tab 04/18/20 05/05/20 Rx Tablet] Atorvastatin Calcium [Lipitor] 40 mg PO HS #90 tab 04/18/20 05/05/20 Rx Clopidogrel Bisulfate [Plavix] 75 mg PO DAILY #90 tab 04/18/20 05/05/20 Rx HYDROcodone Bit/APAP 5/325 [[place]] 2 tab PO Q4H PRN #40 tab 04/18/20 05/05/20 Rx Carvedilol [Coreg] 6.25 mg PO BID- #60 tab 04/19/20 05/05/20 Rx Cephalexin [Keflex] 500 mg PO Q6H #24 cap 04/19/20 05/05/20 Rx HYDROcodone/Acetaminophen [[place] 1 each PO Q6HR PRN #10 tablet 04/19/20 05/05/20 Rx 5-325 Tablet] Lisinopril [Zestril] 2.5 mg PO DAILY #30 tab 04/19/20 05/05/20 Rx Amiodarone [Cordarone] 400 mg PO DAILY 30 Days #30 tab 04/22/20 05/05/20 Rx Furosemide [Lasix] 40 mg PO DAILY 30 Days #30 tablet 04/22/20 05/05/20 Rx Insulin Regular, Human [Novolin R] 0 units IJ 05/05/20 History Potassium Chloride 10 meq PO DAILY 05/05/20 05/05/20 History Pantoprazole [Protonix] 40 mg PO DAILY #30 tab 05/06/20 Rx Allergies: No Known Drug Allergies Allergy (Verified 04/13/20 08:46) Activity:: Activity as Tolerated Nourishment:: Heart Healthy Diet Referrals: Michaela Hassan FNP [Primary Care Provider] - 7 Days (Call office to schedule a follow up appointment.) Marily Jones MD [Active] - 2-3 Weeks (Call office to schedule a follow up appointment. ) Disposition: HOME Quality CORE MEASURES:: N/A
== END 2020-05-06 17:28 | disposition home or self-care (01) ==
LOC: ERS 16:44 → INTOOBSV 19:18 → 2NO 19:18
PROVIDERS: ADMIT Internal Medicine; ATTEND Internal Medicine
DX: R10.13 Epigastric pain (principal); I25.10 Atherosclerotic heart disease of native coronary artery without angina pectoris; E87.6 Hypokalemia; E87.1 Hypo-osmolality and hyponatremia; N17.9 Acute kidney failure, unspecified; E78.5 Hyperlipidemia, unspecified; I10 Essential (primary) hypertension; E11.9 Type 2 diabetes mellitus without complications; F12.10 Cannabis abuse, uncomplicated; R94.31 Abnormal electrocardiogram [ECG] [EKG]; Z79.02 Long term (current) use of antithrombotics/antiplatelets; Z79.82 Long term (current) use of aspirin; Z79.84 Long term (current) use of oral hypoglycemic drugs; Z79.899 Other long term (current) drug therapy; Z95.0 Presence of cardiac pacemaker; Z95.1 Presence of aortocoronary bypass graft; Z20.822 Contact with and (suspected) exposure to COVID-19
CPT/HCPCS: 71045; 80048; 80053; 81003; 82962; 83690; 83735; 83880; 84484 ×2; 85025 ×2; 93005; 93975; 99285; U0003; U0005; 36415; 36416; 87635; 96374; 96375; C9113; G0378; J3475; J7050

== ENCOUNTER 2020-09-03 00:10 | Emergency (ER) | payer MEDICARE, OTHER ==
[2020-09-03 01:01] LABS: Bacteria/HPF None Seen HPF (None Seen); Bilirubin Negative (Negative); Blood, Urine 3+ (Negative); Clarity Clear (Clear); Glucose, Urine (Dipstick) 50 mg/dL (Negative); Ketone, Urine Negative (Negative); Leukocyte Negative Leu/uL (Negative); Nitrite Negative (Negative); Protein, Urine (Dipstick) 20 mg/dL (Neg-Trace); RBC/HPF Greater than 50 HPF (0-3); Specific Gravity, Urine 1.015 (1.002-1.036); Squamous Epithelial None Seen HPF (0-3); Urobilinogen Normal mg/dL (Less than 2); pH, Urine 6.5 (5.0-9.0)
== END 2020-09-03 01:51 | disposition home or self-care (01) ==
LOC: ERS 00:10
DX: R31.9 Hematuria, unspecified (principal); I10 Essential (primary) hypertension; E11.9 Type 2 diabetes mellitus without complications; E78.00 Pure hypercholesterolemia, unspecified; Z79.84 Long term (current) use of oral hypoglycemic drugs; Z79.899 Other long term (current) drug therapy
CPT/HCPCS: 81003; 81015; 87086; 99283